=== PATIENT | male | born 1955 | race African-American/Black ===

== ENCOUNTER → 2017-08-18 15:06 | Outpatient (CLI) | payer MEDICARE, SELFPAY ==
[2017-08-18 19:50] LABS: Amphetamine/Metha Screen,Urine Negative ng/mL (<1000); Barbiturates Screen,Urine Negative ng/mL (<200); Benzodiazepines Screen,Urine Negative ng/mL (200); Cannabinoid Screen,Urine Negative ng/mL (<50); Cocaine Screen,Urine Negative ng/g (<300); Methadone Screen,Urine Negative ng/mL (<300); Opiate Screen,Urine Negative ng/mL (<300); Phencyclidine Screen,Urine Negative ng/mL (<25)
[2017-08-30 23:07] LABS: Oxycodone (GC/MS) 890 ng/mL (Cutoff=100)
[2017-08-31 02:15] LABS: Opiates Negative (Cutoff=100); Oxymorphone (GC/MS) 297 ng/mL (Cutoff=100)
== END ==
PROVIDERS: PCP Family Medicine; Visit Provider Anesthesiology
DX: Z79.899 Other long term (current) drug therapy (principal)
CPT/HCPCS: 80305; 80361; 80365; G0480

== ENCOUNTER → 2017-09-15 13:48 | Outpatient (POV) | payer MEDICARE, OTHER, SELFPAY ==
--- NOTE | 2017-09-15 14:11 | HMH.PAINSOAP ---
[facility] Pain Management SOAP Note Subjective:: This patient is a pleasant 62-year-old -[place] male who we are treating in our clinic for back pain secondary to degenerative disc disease of the lumbar spine, lumbar radiculopathy and postlaminectomy syndrome. Patient is currently being medically managed with Percocet 7.5 mg 1 tab p.o. 3 times daily. Patient states that this decreases his pain 75-80%. Patient is much more functional with the pain medication. Patient's drug screens have been appropriate in the past his JACKLYN #[id number] reviewed and appropriate. Patient states that his pain is dull and achy in nature. Movement and weather can increase the pain whereas rest can decrease it. Patient denies any side effects to the medication. ROS General: no recent weight change, no fever, no sleep disturbances Respiratory: no cough, no shortness of air, no recurring pulmonary infections Cardiovascular/Peripheral Vascular: No chest pain, No palpitations, no edema, no shortness of breath. Gastrointestinal: no incontinence, normal bowel movements reported Genitourinary: Bladder stinger placed in 2013 Musculoskeletal: Low back pain Psychiatric: normal mood/ affect Neurological: [denies weakness in extremities], [denies balance issues] Objective:: Physical Exam General: Alert and oriented x3, no acute distress, pleasant and cooperative, [on room air] Lungs: Resps E/U, Symmetrical chest expansion, Eyes: PERRL Musculoskeletal: Flexion and extension of lumbar spine somewhat guarded secondary to pain, deep tendon reflexes normal, strength in upper and lower extremities [5/5], normal gait noted Neurological: speech clear, 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 3 times daily, given the efficacy of this current regimen. Dr. García reviewed the chart and agrees with this. We will give him 2 months worth of prescriptions. He can call for the third inter-month. We will see him back in 3 months. Patient's Jacklyn and UDS have been reviewed. Patient has been prescribed a controlled substance after being counseled on the medication, medication safety, and possible side effects. JACKLYN report has been obtained and reviewed prior to prescription and found to be appropriate. Opioid contract was reviewed and signed by the patient, and that they have agreed to all of the terms set forth by our compliance program. This note was dictated using voice recognition software and may contain errors or omissions
--- NOTE | 2017-09-15 14:14 | P.CONS_ITS ---
[facility] Pain Management SOAP Note Subjective:: This patient is a pleasant 62-year-old -Australian male who we are treating in our clinic for back pain secondary to degenerative disc disease of the lumbar spine, lumbar radiculopathy and postlaminectomy syndrome. Patient is currently being medically managed with Percocet 7.5 mg 1 tab p.o. 3 times daily. Patient states that this decreases his pain 75-80%. Patient is much more functional with the pain medication. Patient's drug screens have been appropriate in the past his JACKLYN #[id number] reviewed and appropriate. Patient states that his pain is dull and achy in nature. Movement and weather can increase the pain whereas rest can decrease it. Patient denies any side effects to the medication. ROS General: no recent weight change, no fever, no sleep disturbances Respiratory: no cough, no shortness of air, no recurring pulmonary infections Cardiovascular/Peripheral Vascular: No chest pain, No palpitations, no edema, no shortness of breath. Gastrointestinal: no incontinence, normal bowel movements reported Genitourinary: Bladder stinger placed in 2013 Musculoskeletal: Low back pain Psychiatric: normal mood/ affect Neurological: [denies weakness in extremities], [denies balance issues] Objective:: Physical Exam General: Alert and oriented x3, no acute distress, pleasant and cooperative, [ on room air] Lungs: Resps E/U, Symmetrical chest expansion, Eyes: PERRL Musculoskeletal: Flexion and extension of lumbar spine somewhat guarded secondary to pain, deep tendon reflexes normal, strength in upper and lower extremities [5/5], normal gait noted Neurological: speech clear, income tax consultant equal, no gross sensory deficits Assessment:: Degenerative disc disease of the lumbar spine, lumbar radiculopathy, postlaminectomy syndrome Plan:: We will refill this patient's medications Percocet 7.5 mg 1 p.o. 3 times daily, given the efficacy of this current regimen. Dr. García reviewed the chart and agrees with this. We will give him 2 months worth of prescriptions. He can call for the third inter-month. We will see him back in 3 months. Patient's Jacklyn and UDS have been reviewed. Patient has been prescribed a controlled substance after being counseled on the medication, medication safety, and possible side effects. JACKLYN report has been obtained and reviewed prior to prescription and found to be appropriate. Opioid contract was reviewed and signed by the patient, and that they have agreed to all of the terms set forth by our compliance program. This note was dictated using voice recognition software and may contain errors or omissions
[2017-09-15 14:15] VITALS: BP 150/82; PULSE 94; RESP 20; TEMP 36.6; O2SAT 100; BMI 28.5
== END ==
PROVIDERS: Family Provider Family Medicine; PCP Family Medicine; Visit Provider Clinical Nurse Specialist Family Health
DX: M54.16 Radiculopathy, lumbar region (principal)
CPT/HCPCS: 99212

== ENCOUNTER → 2017-11-23 08:55 | Outpatient (POV) | payer MEDICARE, OTHER, SELFPAY ==
[2017-11-23 09:10] VITALS: BP 122/80; PULSE 68; RESP 18; TEMP 36.6; O2SAT 98; BMI 28.5
--- NOTE | 2017-11-23 09:40 | HMH.PAINSOAP ---
[facility] Pain Management SOAP Note Subjective:: Patient is a very pleasant 62-year-old -[place]ian male who we are treating for pain secondary to degenerative disc disease of the lumbar spine, lumbar radiculopathy and postlaminectomy syndrome. Patient is currently being medically managed with Percocet 7.5 mg 1 tab p.o. 3 times daily. Patient states this decreases his pain 70-80%. Patient is much more functional with pain medication. Patient is due a drug screen today we will send him after this and continue to monitor it for compliance. Patient's JACKLYN #[id number] reviewed and appropriate. Patient states that his pain is dull and achy in nature. Patient states that with the increase in brain it has slightly worsened. ROS General: no recent weight change, no fever, no sleep disturbances Respiratory: no cough, no shortness of air, no recurring pulmonary infections Cardiovascular/Peripheral Vascular: No chest pain, No palpitations, no edema, no shortness of breath. Gastrointestinal: no incontinence, normal bowel movements reported Genitourinary: Bladder stimulator Musculoskeletal: Low back pain Psychiatric: normal mood/ affect, [denies depression], [denies anxiety] Neurological: [denies weakness in extremities], [denies balance issues] Objective:: Physical Exam General: Alert and oriented x3, no acute distress, pleasant and cooperative, [on room air] Lungs: Resps E/U, Symmetrical chest expansion, Eyes: PERRL Musculoskeletal: Flexion and extension of lumbar spine somewhat guarded secondary to pain, deep tendon reflexes normal, strength in upper and lower extremities [5/5], slightly antalgic gait noted Neurological: speech clear, medication aid equal, no gross sensory deficits Assessment:: Degenerative disc disease lumbar spine, lumbar radiculopathy, postlaminectomy syndrome Plan:: We will refill the patient's medication is a 7.5 mg 1 p.o. 3 times daily. 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 We will see the patient back in [address] García has reviewed this chart and agrees with this plan of care. Patient's Jacklyn has been reviewed and his UDS will be reviewed upon receiving it after this visit. Patient has been prescribed a controlled substance after being counseled on the medication, medication safety, and possible side effects. JACKLYN report has been obtained and reviewed prior to prescription and found to be appropriate. Opioid contract was reviewed and signed by the patient, and that they have agreed to all of the terms set forth by our compliance program. This note was dictated using voice recognition software and may contain errors or omissions
--- NOTE | 2017-11-23 09:43 | P.CONS_ITS ---
[facility] Pain Management SOAP Note Subjective:: Patient is a very pleasant 62-year-old -Scottish male who we are treating for pain secondary to degenerative disc disease of the lumbar spine, lumbar radiculopathy and postlaminectomy syndrome. Patient is currently being medically managed with Percocet 7.5 mg 1 tab p.o. 3 times daily. Patient states this decreases his pain 70-80%. Patient is much more functional with pain medication. Patient is due a drug screen today we will send him after this and continue to monitor it for compliance. Patient's JACKLYN #[id number] reviewed and appropriate. Patient states that his pain is dull and achy in nature. Patient states that with the increase in brain it has slightly worsened. ROS General: no recent weight change, no fever, no sleep disturbances Respiratory: no cough, no shortness of air, no recurring pulmonary infections Cardiovascular/Peripheral Vascular: No chest pain, No palpitations, no edema, no shortness of breath. Gastrointestinal: no incontinence, normal bowel movements reported Genitourinary: Bladder stimulator Musculoskeletal: Low back pain Psychiatric: normal mood/ affect, [denies depression], [denies anxiety] Neurological: [denies weakness in extremities], [denies balance issues] Objective:: Physical Exam General: Alert and oriented x3, no acute distress, pleasant and cooperative, [ on room air] Lungs: Resps E/U, Symmetrical chest expansion, Eyes: PERRL Musculoskeletal: Flexion and extension of lumbar spine somewhat guarded secondary to pain, deep tendon reflexes normal, strength in upper and lower extremities [5/5], slightly antalgic gait noted Neurological: speech clear, field service consultant equal, no gross sensory deficits Assessment:: Degenerative disc disease lumbar spine, lumbar radiculopathy, postlaminectomy syndrome Plan:: We will refill the patient's medication is a 7.5 mg 1 p.o. 3 times daily. 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 We will see the patient back in [address] García has reviewed this chart and agrees with this plan of care. Patient's Jacklyn has been reviewed and his UDS will be reviewed upon receiving it after this visit. Patient has been prescribed a controlled substance after being counseled on the medication, medication safety, and possible side effects. JACKLYN report has been obtained and reviewed prior to prescription and found to be appropriate. Opioid contract was reviewed and signed by the patient, and that they have agreed to all of the terms set forth by our compliance program. This note was dictated using voice recognition software and may contain errors or omissions
[2017-11-23 10:28] LABS: Amphetamine/Metha Screen,Urine Negative ng/mL (<1000); Barbiturates Screen,Urine Negative ng/mL (<200); Benzodiazepines Screen,Urine Negative ng/mL (200); Cannabinoid Screen,Urine Negative ng/mL (<50); Cocaine Screen,Urine Negative ng/g (<300); Methadone Screen,Urine Negative ng/mL (<300); Opiate Screen,Urine Negative ng/mL (<300); Phencyclidine Screen,Urine Negative ng/mL (<25)
[2017-11-28 17:17] LABS: Oxycodone (GC/MS) 1180 ng/mL (Cutoff=100)
[2017-11-29 06:25] LABS: Opiates Negative (Cutoff=100); Oxymorphone (GC/MS) 445 ng/mL (Cutoff=100)
== END ==
PROVIDERS: Family Provider Family Medicine; PCP Family Medicine; Visit Provider Clinical Nurse Specialist Family Health
DX: M54.16 Radiculopathy, lumbar region; Z79.899 Other long term (current) drug therapy
CPT/HCPCS: 80305; 80361; 80365; 99212; G0480

== ENCOUNTER → 2018-02-15 13:53 | Outpatient (POV) | payer MEDICARE, OTHER, SELFPAY ==
[2018-02-15 14:07] VITALS: BP 136/81; PULSE 84; RESP 18; O2SAT 97; BMI 30.4
--- NOTE | 2018-02-15 14:25 | HMH.PAINSOAP ---
[facility] Pain Management SOAP Note Subjective:: Patient is a very pleasant 63-year-old -Lebanese male who we are treating for pain secondary to degenerative disc disease of the lumbar spine with lumbar radiculopathy and postlaminectomy syndrome. Patient is being medically managed with Percocet 7.5 mg 1 tab p.o. 3 times daily. Patient states that this helps his pain up to 70%. Patient's much more functional with his pain medication. Patient states his pain is a little higher today due to the weather. He rates his pain a 5 out of 10 today. Patient's JACKLYN #[id number] reviewed and appropriate. ROS General: no recent weight change, no fever, no sleep disturbances Respiratory: no cough, no shortness of air, no recurring pulmonary infections Cardiovascular/Peripheral Vascular: No chest pain, No palpitations, no edema, no shortness of breath. Gastrointestinal: no incontinence, normal bowel movements reported Genitourinary: no incontinence Musculoskeletal: Back pain, leg pain Psychiatric: normal mood/ affect Neurological: [denies weakness in extremities], [denies balance issues] Objective:: Physical Exam General: Alert and oriented x3, no acute distress, pleasant and cooperative, [on room air] Lungs: Resps E/U, Symmetrical chest expansion, Eyes: PERRL Musculoskeletal: Flexion and extension of lumbar spine somewhat guarded secondary to pain, deep tendon reflexes normal, strength in upper and lower extremities [5/5], slightly antalgic gait noted Neurological: speech clear, multi skilled operator equal, no gross sensory deficits Assessment:: Degenerative disc disease lumbar spine with lumbar radiculopathy and postlaminectomy syndrome of the lumbar spine Plan:: We will refill the patient's Percocet 7.5 mg 1 tab p.o. 3 times daily we will give him 2 months worth of medication. Patient's Jacklyn and urine drug screen have been reviewed. Patient's urine drug screen has been appropriate in the past. Dr. García is reviewed this chart and agrees with this plan of care. We will give him 2 prescriptions and follow-up with him in 3 months. 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 Patient's been instructed to call the office if he has any issues prior to his next appointment. Patient has been prescribed a controlled substance after being counseled on the medication, medication safety, and possible side effects. JACKLYN report has been obtained and reviewed prior to prescription and found to be appropriate. Opioid contract was reviewed and signed by the patient, and that they have agreed to all of the terms set forth by our compliance program. This note was dictated using voice recognition software and may contain errors or omissions
--- NOTE | 2018-02-15 14:29 | P.CONS_ITS ---
[facility] Pain Management SOAP Note Subjective:: Patient is a very pleasant 63-year-old -Stateless male who we are treating for pain secondary to degenerative disc disease of the lumbar spine with lumbar radiculopathy and postlaminectomy syndrome. Patient is being medically managed with Percocet 7.5 mg 1 tab p.o. 3 times daily. Patient states that this helps his pain up to 70%. Patient's much more functional with his pain medication. Patient states his pain is a little higher today due to the weather. He rates his pain a 5 out of 10 today. Patient's JACKLYN # [id number] reviewed and appropriate. ROS General: no recent weight change, no fever, no sleep disturbances Respiratory: no cough, no shortness of air, no recurring pulmonary infections Cardiovascular/Peripheral Vascular: No chest pain, No palpitations, no edema, no shortness of breath. Gastrointestinal: no incontinence, normal bowel movements reported Genitourinary: no incontinence Musculoskeletal: Back pain, leg pain Psychiatric: normal mood/ affect Neurological: [denies weakness in extremities], [denies balance issues] Objective:: Physical Exam General: Alert and oriented x3, no acute distress, pleasant and cooperative, [ on room air] Lungs: Resps E/U, Symmetrical chest expansion, Eyes: PERRL Musculoskeletal: Flexion and extension of lumbar spine somewhat guarded secondary to pain, deep tendon reflexes normal, strength in upper and lower extremities [5/5], slightly antalgic gait noted Neurological: speech clear, burglary investigator equal, no gross sensory deficits Assessment:: Degenerative disc disease lumbar spine with lumbar radiculopathy and postlaminectomy syndrome of the lumbar spine Plan:: We will refill the patient's Percocet 7.5 mg 1 tab p.o. 3 times daily we will give him 2 months worth of medication. Patient's Jacklyn and urine drug screen have been reviewed. Patient's urine drug screen has been appropriate in the past. Dr. García is reviewed this chart and agrees with this plan of care. We will give him 2 prescriptions and follow-up with him in 3 months. 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 Patient's been instructed to call the office if he has any issues prior to his next appointment. Patient has been prescribed a controlled substance after being counseled on the medication, medication safety, and possible side effects. JACKLYN report has been obtained and reviewed prior to prescription and found to be appropriate. Opioid contract was reviewed and signed by the patient, and that they have agreed to all of the terms set forth by our compliance program. This note was dictated using voice recognition software and may contain errors or omissions
== END ==
PROVIDERS: Visit Provider Clinical Nurse Specialist Family Health
DX: M51.16 Intervertebral disc disorders with radiculopathy, lumbar region (principal); M96.1 Postlaminectomy syndrome, not elsewhere classified
CPT/HCPCS: 99212

== ENCOUNTER → 2018-03-01 12:39 | Outpatient (POV) | payer MEDICARE, OTHER, SELFPAY | PROVIDERS: Visit Provider Nurse Practitioner Acute Care | DX: Z00.00 Encounter for general adult medical examination without abnormal findings (principal) ==

== ENCOUNTER → 2018-04-12 10:11 | Outpatient (POV) | payer MEDICARE, OTHER, SELFPAY ==
[2018-04-12 10:23] VITALS: BP 142/83; PULSE 82; RESP 18; O2SAT 98; BMI 29.5
--- NOTE | 2018-04-12 10:51 | HMH.PAINSOAP ---
[facility] Pain Management SOAP Note Subjective:: Patient is a very pleasant 63-year-old -Chinese male who we are treating for pain secondary to degenerative disc disease lumbar spine with lumbar radiculopathy and postlaminectomy syndrome. Patient is currently being medically managed with Percocet 7.5 mg 1 p.o. 3 times daily. Patient denies any side effects from this medication and states that it helps up to 70%. Patient states he is much more plugged functional. Patient rates his pain 8 out of 10 however his baseline is 5 out of 10. Patient states is higher today due to weather. Patient's JACKLYN #[id number] reviewed and appropriate. Patient's urine drug screen has been appropriate in the past. ROS General: no recent weight change, no fever, no sleep disturbances Respiratory: no cough, no shortness of air, no recurring pulmonary infections Cardiovascular/Peripheral Vascular: No chest pain, No palpitations, no edema, no shortness of breath. Gastrointestinal: no incontinence, normal bowel movements reported Genitourinary: no incontinence Musculoskeletal: Back pain, right hip pain Psychiatric: normal mood/ affect Neurological: [denies weakness in extremities], [denies balance issues] Objective:: Physical Exam General: Alert and oriented x3, no acute distress, pleasant and cooperative, [on room air] Lungs: Resps E/U, Symmetrical chest expansion, Eyes: PERRL Musculoskeletal: Flexion and extension of lumbar spine somewhat guarded secondary to pain, deep tendon reflexes normal, strength in upper and lower extremities [5/5], slightly antalgic gait noted Neurological: speech clear, glass science engineer equal, no gross sensory deficits Assessment:: Degenerative disc disease lumbar spine with lumbar radiculopathy and postlaminectomy syndrome of the lumbar spine Plan:: We will refill the patient's Percocet 7.5 mg 1 tab p.o. 3 times daily and give him 2 months worth of prescriptions. Patient's Jacklyn and urine drug screen have been reviewed. Patient chart has been reviewed by Dr. García and agrees with this plan of care. We will follow-up with him in 3 months and he can cone picker his third prescription in the interim. Patient has been prescribed a controlled substance after being counseled on the medication, medication safety, and possible side effects. JACKLYN report has been obtained and reviewed prior to prescription and found to be appropriate. Opioid contract was reviewed and signed by the patient, and that they have agreed to all of the terms set forth by our compliance program. This note was dictated using voice recognition software and may contain errors or omissions
--- NOTE | 2018-04-12 10:54 | P.CONS_ITS ---
[facility] Pain Management SOAP Note Subjective:: Patient is a very pleasant 63-year-old -[place] male who we are treating for pain secondary to degenerative disc disease lumbar spine with lumbar radiculopathy and postlaminectomy syndrome. Patient is currently being medically managed with Percocet 7.5 mg 1 p.o. 3 times daily. Patient denies any side effects from this medication and states that it helps up to 70%. Patient states he is much more plugged functional. Patient rates his pain 8 out of 10 however his baseline is 5 out of 10. Patient states is higher today due to weather. Patient's JACKLYN #[id number] reviewed and appropriate. Patient's urine drug screen has been appropriate in the past. ROS General: no recent weight change, no fever, no sleep disturbances Respiratory: no cough, no shortness of air, no recurring pulmonary infections Cardiovascular/Peripheral Vascular: No chest pain, No palpitations, no edema, no shortness of breath. Gastrointestinal: no incontinence, normal bowel movements reported Genitourinary: no incontinence Musculoskeletal: Back pain, right hip pain Psychiatric: normal mood/ affect Neurological: [denies weakness in extremities], [denies balance issues] Objective:: Physical Exam General: Alert and oriented x3, no acute distress, pleasant and cooperative, [on room air] Lungs: Resps E/U, Symmetrical chest expansion, Eyes: PERRL Musculoskeletal: Flexion and extension of lumbar spine somewhat guarded secondary to pain, deep tendon reflexes normal, strength in upper and lower extremities [5/5], slightly antalgic gait noted Neurological: speech clear, marine electrician apprentice equal, no gross sensory deficits Assessment:: Degenerative disc disease lumbar spine with lumbar radiculopathy and postlaminectomy syndrome of the lumbar spine Plan:: We will refill the patient's Percocet 7.5 mg 1 tab p.o. 3 times daily and give him 2 months worth of prescriptions. Patient's Jacklyn and urine drug screen have been reviewed. Patient chart has been reviewed by Dr. García and agrees with this plan of care. 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 Patient has been prescribed a controlled substance after being counseled on the medication, medication safety, and possible side effects. JACKLYN report has been obtained and reviewed prior to prescription and found to be appropriate. Opioid contract was reviewed and signed by the patient, and that they have agreed to all of the terms set forth by our compliance program. This note was dictated using voice recognition software and may contain errors or omissions
[2018-04-12 13:45] LABS: Amphetamine/Metha Screen,Urine Negative ng/mL (<1000); Barbiturates Screen,Urine Negative ng/mL (<200); Benzodiazepines Screen,Urine Negative ng/mL (<200); Cannabinoid Screen,Urine Negative ng/mL (<50); Cocaine Screen,Urine Negative ng/mL (<300); Methadone Screen,Urine Negative ng/mL (<300); Opiate Screen,Urine Negative ng/mL (<300); Phencyclidine Screen,Urine Negative ng/mL (<25)
[2018-04-16 09:19] LABS: Oxycodone (GC/MS) 771 ng/mL (Cutoff=100)
[2018-04-16 12:33] LABS: Opiates Negative (Cutoff=100); Oxymorphone (GC/MS) 288 ng/mL (Cutoff=100)
== END ==
PROVIDERS: Family Provider Family Medicine; Visit Provider Clinical Nurse Specialist Family Health
DX: M51.36 Other intervertebral disc degeneration, lumbar region (principal); M96.1 Postlaminectomy syndrome, not elsewhere classified; Z79.899 Other long term (current) drug therapy
CPT/HCPCS: 80305; 80361; 80365; 99213; G0480

== ENCOUNTER → 2018-07-19 09:30 | Outpatient (POV) | payer MEDICARE, OTHER, SELFPAY ==
[2018-07-19 09:55] VITALS: BP 148/90; PULSE 80; RESP 18; O2SAT 98; BMI 29.5
--- NOTE | 2018-07-19 10:11 | P.CONS_ITS ---
[facility] Pain Management SOAP Note Subjective:: Patient is a pleasant 63-year-old -Italian male who presents today for medication refills. He is currently being managed with Percocet 7.5 mg 1 p.o. 3 times daily. He denies any side effects to his medication and states it helps up to 70%. Patient rates his his pain a 7 out of 10 today. Patient states is up a little bit due to weather. Patient's JACKLYN #[id number] reviewed and appropriate. Patient urine drug screen has been appropriate in the past. ROS General: no recent weight change, no fever, no sleep disturbances Respiratory: no cough, no shortness of air, no recurring pulmonary infections Cardiovascular/Peripheral Vascular: No chest pain, No palpitations, no edema, no shortness of breath. Gastrointestinal: no incontinence, normal bowel movements reported Genitourinary: no incontinence Musculoskeletal: Back pain Psychiatric: normal mood/ affect, [denies depression], [denies anxiety] Neurological: [denies weakness in extremities], [denies balance issues] Objective:: Physical Exam General: Alert and oriented x3, no acute distress, pleasant and cooperative, [on room air] Lungs: Resps E/U, Symmetrical chest expansion, Eyes: PERRL Musculoskeletal: Flexion and extension of lumbar spine somewhat guarded secondary to pain, deep tendon reflexes normal, strength in upper and lower extremities [5/5], [abnormal gait noted] Neurological: speech clear, 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 3 times daily and give him 2 months worth of prescriptions. 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 Patient's been instructed to call the office if he has any issues prior to his next appointment. Dr. García is reviewed this chart and agrees with this plan of care. Patient has been prescribed a controlled substance after being counseled on the medication, medication safety, and possible side effects. JACKLYN report has been obtained and reviewed prior to prescription and found to be appropriate. Opioid contract was reviewed and signed by the patient, and that they have agreed to all of the terms set forth by our compliance program. This note was dictated using voice recognition software and may contain errors or omissions
== END ==
PROVIDERS: PCP Family Medicine; Visit Provider Clinical Nurse Specialist Family Health
DX: M51.16 Intervertebral disc disorders with radiculopathy, lumbar region (principal); M96.1 Postlaminectomy syndrome, not elsewhere classified
CPT/HCPCS: 99213

== ENCOUNTER → 2018-09-15 09:42 | Outpatient (CLI) | payer MEDICARE, OTHER, SELFPAY ==
[2018-09-15 10:30] LABS: Amphetamine/Metha Screen,Urine Negative ng/mL (<1000); Barbiturates Screen,Urine Negative ng/mL (<200); Benzodiazepines Screen,Urine Negative ng/mL (<200); Cannabinoid Screen,Urine Negative ng/mL (<50); Cocaine Screen,Urine Negative ng/mL (<300); Methadone Screen,Urine Negative ng/mL (<300); Opiate Screen,Urine Negative ng/mL (<300); Phencyclidine Screen,Urine Negative ng/mL (<25)
[2018-09-21 09:25] LABS: Opiates Negative (Cutoff=100)
== END ==
PROVIDERS: Visit Provider Clinical Nurse Specialist Family Health
DX: Z79.899 Other long term (current) drug therapy (principal)
CPT/HCPCS: 80305; 80361; 80365; G0480

== ENCOUNTER → 2018-10-11 10:07 | Outpatient (POV) | payer MEDICARE, OTHER, SELFPAY ==
[2018-10-11 10:36] VITALS: BP 145/88; PULSE 80; RESP 18; O2SAT 98; BMI 28.3
--- NOTE | 2018-10-11 11:03 | XR_ITS ---
XR hip RT 2-3V w/pelvis HISTORY: Pain ITS.REASON: BACK PAIN ORDERING PHYSICIAN: Renea Condon PATIENT AGE: 63 years COMPARISON: None FINDINGS: Neurostimulator device noted over the right sacral region. Surgical clips are present over the lower pelvis. Penile implant noted. There are moderate osteoarthritic changes of the right hip. No fracture or dislocation is evident. There is an os acetabulum noted laterally. There are moderate osteoarthritic changes of the left hip as well with some chondral lucency along the acetabulum laterally consistent with a subchondral cyst. IMPRESSION: Moderate osteoarthritic change of both hips
--- NOTE | 2018-10-11 11:03 | XR_ITS ---
EXAM: XR lumbar spine min 4V HISTORY: ITS.REASON: BACK PAIN ORDERING PHYSICIAN: Renea Condon PATIENT AGE: 63 years COMPARISON: 11/05/2015 FINDINGS: There is lumbar is a shunt of S1. There is normal alignment with no fracture or dislocation. Degenerative disc disease is present from L2 to S1 and S1-S2. There is mild facet arthritic changes at the lumbosacral junction and there is a small anterior superior osteophyte at L1 and L2. A neurostimulator device is present overlying the right aspect of the sacrum. There is mild osteosclerosis of the left SI joint and there is mild lumbar curvature convex right IMPRESSION: Degenerative changes as described above with no significant change from the previous exam.
--- NOTE | 2018-10-11 13:39 | HMH.PAINSOAP ---
[facility] Pain Management SOAP Note Subjective:: Patient is a pleasant 63-year-old -Bhut[place] male who presents today for medication refills. Patient was negative on his last urine drug screen and patient has recently failed a pill count by 20+ pills. Patient states he was taking extra. I discussed with him we would not be able to continue with medication management. He understands. Patient rates his pain a 7 out of 10 today. Patient states most of his pain is in his right hip and lower back. Patient has not had any diagnostic studies in regards to this. Patient will go for x-rays today. ROS General: no recent weight change, no fever, no sleep disturbances Respiratory: no cough, no shortness of air, no recurring pulmonary infections Cardiovascular/Peripheral Vascular: No chest pain, No palpitations, no edema, no shortness of breath. Gastrointestinal: no incontinence, normal bowel movements reported Genitourinary: no incontinence Musculoskeletal: Back pain, right hip pain Psychiatric: normal mood/ affect Neurological: [denies weakness in extremities], [denies balance issues] Objective:: Physical Exam General: Alert and oriented x3, no acute distress, pleasant and cooperative, [on room air] Lungs: Resps E/U, Symmetrical chest expansion, Eyes: PERRL Musculoskeletal: Flexion and extension of lumbar spine somewhat guarded secondary to pain, deep tendon reflexes normal, strength in upper and lower extremities [5/5], [abnormal gait noted] Neurological: speech clear, 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 3 times daily. After this we will no longer prescribe any narcotic medications. Patient states he would still like to go ahead and get x-rays. He will either follow-up with us or Dr. Dooley. Patient is still candidate for injective therapy if he would like to move forward with this in the future. Patient has been prescribed a controlled substance after being counseled on the medication, medication safety, and possible side effects. JACKLYN report has been obtained and reviewed prior to prescription and found to be appropriate. Opioid contract was reviewed and signed by the patient, and that they have agreed to all of the terms set forth by our compliance program. Dr. García has reviewed this note and agrees with this plan of care. This note was dictated using voice recognition software and may contain errors or omissions
--- NOTE | 2018-10-11 13:42 | P.CONS_ITS ---
[facility] Pain Management SOAP Note Subjective:: Patient is a pleasant 63-year-old -[place] male who presents today for medication refills. Patient was negative on his last urine drug screen and patient has recently failed a pill count by 20+ pills. Patient states he was taking extra. I discussed with him we would not be able to continue with medication management. He understands. Patient rates his pain a 7 out of 10 today. Patient states most of his pain is in his right hip and lower back. Patient has not had any diagnostic studies in regards to this. Patient will go for x-rays today. ROS General: no recent weight change, no fever, no sleep disturbances Respiratory: no cough, no shortness of air, no recurring pulmonary infections Cardiovascular/Peripheral Vascular: No chest pain, No palpitations, no edema, no shortness of breath. Gastrointestinal: no incontinence, normal bowel movements reported Genitourinary: no incontinence Musculoskeletal: Back pain, right hip pain Psychiatric: normal mood/ affect Neurological: [denies weakness in extremities], [denies balance issues] Objective:: Physical Exam General: Alert and oriented x3, no acute distress, pleasant and cooperative, [on room air] Lungs: Resps E/U, Symmetrical chest expansion, Eyes: PERRL Musculoskeletal: Flexion and extension of lumbar spine somewhat guarded secondary to pain, deep tendon reflexes normal, strength in upper and lower extremities [5/5], [abnormal gait noted] Neurological: speech clear, 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 3 times daily. After this we will no longer prescribe any narcotic medications. Patient states he would still like to go ahead and get x-rays. He will either follow-up with us or Dr. Dooley. Patient is still candidate for injective therapy if he would like to move forward with this in the future. Patient has been prescribed a controlled substance after being counseled on the medication, medication safety, and possible side effects. JACKLYN report has been obtained and reviewed prior to prescription and found to be appropriate. Opioid contract was reviewed and signed by the patient, and that they have agreed to all of the terms set forth by our compliance program. Dr. García has reviewed this note and agrees with this plan of care. This note was dictated using voice recognition software and may contain errors or omissions
== END ==
PROVIDERS: PCP Family Medicine; Visit Provider Clinical Nurse Specialist Family Health
DX: M51.16 Intervertebral disc disorders with radiculopathy, lumbar region (principal); M96.1 Postlaminectomy syndrome, not elsewhere classified; M25.551 Pain in right hip
CPT/HCPCS: 72110; 73502; 99213

== ENCOUNTER → 2018-11-10 08:36 | Outpatient (CLI) | payer MEDICARE, OTHER, SELFPAY ==
--- NOTE | 2018-11-11 17:53 | HMH.PROC ---
[facility] Procedure Note Procedure Note:: Date of Procedure: 11/10/2018 Pre-procedure diagnosis: R hip DJD Post-procedure diagnosis: R hip DJD Procedure: intraarticular corticosteroid injection R hip Performed by: Estella Paul MD Cosmetic Sales Consultant/s: none Anesthesia: local; 5cc 1% lidocaine w/o epinephrine Estimated Blood Loss: none History of Present Illness: 63-year-old gentleman with right hip pain, localized to the posterolateral hip and upper buttock, no groin pain; radiographic evidence of both degenerative joint disease of the right hip as well as diffuse degenerative changes throughout the lumbar spine. Based on his symptoms, I feel his pain is most likely coming from his back, but I cannot definitively exclude contribution from the arthritic hip. I discussed options with the patient and we have agreed to perform an intra-articular corticosteroid injection under radiographic guidance; if this significantly improves his pain, we will have confirmed that it is most likely coming from hip. If he does not receive pain relief from the injection, I feel it may more likely be coming from his back. Risks of the procedure were discussed with the patient who vocalized understanding and provided informed consent. Procedure Note: The patient presented to the radiology department and changed into a gown, exposing the R hip. Consent was reviewed and signed by both myself and the patient, all questions were answered. The patient was placed supine on the fluoroscopy table and the R hip exposed. The anterior groin/hip and proximal thigh were prepped with chlorhexidine. Timeout was performed. Next, the fluoro machine was brought in over the patient?s R hip and a picture taken to confirm adequate visualization of the joint. I donned a pair of sterile surgical gloves; the remainder of the procedure was performed in a sterile fashion. A 20G spinal needle was held over the hip to approximate my desired entry point on the skin. Once this was established, a 25G needle was used to infiltrate injection site and estimated needle track with 10cc 1% lidocaine w/o epinephrine. Once the injection site was anesthetized, the spinal needle was advanced through the same puncture site and deeper towards the hip joint. Using fluoro, it was confirmed that the needle was advanced until it was at the level of the femoral neck. The stylus was removed from the spinal needle and 2cc of iodinated contrast solution was injected through the spinal needle. Fluoro was taken again, and the dye confirmed intra-capsular placement of the spinal needle, indicating a successful intraarticular injection. The syringe with contrast was removed, keeping the spinal needle in place, and 40mg Kenalog with 2cc 1% lidocaine w/o epinephrine was injected through the needle into the hip joint. A final fluoro picture was taken, confirming successful intraarticular injection. The spinal needle was removed from the hip and a band-aid was placed over the injection site. Specimens: none Condition/Disposition: good / home Complications: none
== END ==
PROVIDERS: PCP Family Medicine; Visit Provider Orthopaedic Surgery
DX: M16.9 Osteoarthritis of hip, unspecified (principal)
CPT/HCPCS: 73525

== ENCOUNTER 2019-01-18 21:08 | Inpatient (IN) ==
[2019-01-18 21:35] LABS: Basophils % 0.4 % (0.1-2.0); Eosinophils # 0.3 K/mm3 (0.0-0.4); Eosinophils % 3.2 % (0.1-12.0); Hematocrit 41.1 % (42.0-52.0); Hemoglobin 13.5 g/dL (14.1-18.0); Lymphocytes # 2.9 K/mm3 (0.7-4.5); Lymphocytes % 26.7 % (10-50); Mean Corpuscular HGB Conc 32.9 g/dL (31.8-35.4); Mean Corpuscular Volume 85.2 fl (80-94); Mean Platelet Volume 7.4 fl (7.4-10.4); Monocytes # 0.8 K/mm3 (0.1-1.0); Neutrophils # 6.8 K/mm3 (1.8-7.8); Neutrophils % 62.6 % (37.0-80.0); Platelet Count 259 K/mm3 (142-424); Red Blood Count 4.83 M/mm3 (4.60-6.20); Red Cell Distribution Width 13.9 % (11.5-17.5); White Blood Count 10.8 K/mm3 (4.8-10.8)
[2019-01-18 21:48] LABS: Albumin Level 3.2 gm/dL (3.4-5.0); Bilirubin,Direct 0.3 mg/dL (0.0-0.2); Bilirubin,Indirect 0.9 mg/dL (0.0-0.9); Bilirubin,Total 1.2 mg/dL (0.2-1.0); Total Protein,Serum 7.7 gm/dL (6.4-8.2)
[2019-01-18 21:51] LABS: Anion Gap 11.9 mEq/L (5-15); Blood Urea Nitrogen 25 mg/dL (7-18); Calcium 8.9 mg/dL (8.5-10.1); Carbon Dioxide 29 mmol/L (21.0-32.0); Chloride 99 mmol/L (98-107); Glucose 103 mg/dL (74-106); Sodium 137 mmol/L (136-145)
--- NOTE | 2019-01-18 23:23 | Emergency Department Note ---
ED Disposition Clinical Impression: Renal insufficiency, Hypokalemia Pulmonary embolism Qualifiers: Pulmonary embolism type: other Chronicity: acute Acute cor pulmonale presence: without acute cor pulmonale Qualified Code(s): I26.99 - Other pulmonary embolism without acute cor pulmonale Disposition: Admitted As Inpatient Condition on Discharge: Good - Critical Care Critical Care Time: No Attestation: On 01/18/19, the high probability of a clinically significant, sudden or life threatening deterioration of the following system(s) required my full and direct attention, intervention and personal management. The time I documented below is in addition to time spent performing reported procedures but includes the following listed in this critical care notation. Medical Decision Making - Medical Records Medical records reviewed: Yes: I reviewed the patient's medical records. - Isidro Inquiry Pt receiving controlled substance: No Vital Signs: 01/18/19 21:12 01/18/19 21:53 01/18/19 22:39 Temperature 98.0 F Temperature Source Oral Pulse Rate 83 Pulse Rate [Right Brachial] 100 H 109 H Respiratory Rate 19 20 Blood Pressure [Right Arm] 131/69 133/70 Blood Pressure Mean [Right Arm] 89 91 Blood Pressure Source [Right Arm] Automatic Cuff Blood Pressure Position [Right Arm] Supine 02 Sat by Pulse Oximetry 98 96 Oxygen Delivery Method Room Air Nasal Cannula Oxygen Flow Rate (LPM) 2 01/18/19 23:05 Temperature Temperature Source Pulse Rate Pulse Rate [Right Brachial] 107 H Respiratory Rate 20 Blood Pressure [Right Arm] 147/89 H Blood Pressure Mean [Right Arm] 108 Blood Pressure Source [Right Arm] Automatic Cuff Blood Pressure Position [Right Arm] Sitting 02 Sat by Pulse Oximetry 96 Oxygen Delivery Method Nasal Cannula Oxygen Flow Rate (LPM) 2 - Lab Data Lab results reviewed: Yes: I reviewed the patient's lab results. Lab Results 01/18/19 21:20: WBC 10.8, RBC 4.83, Hgb 13.5 L, Hct 41.1 L, MCV 85.2, MCH 28.0, MCHC 32.9, RDW 13.9, Plt Count 259, MPV 7.4, Neut % (Auto) 62.6, Lymph % (Auto) 26.7, [place] % (Auto) 7.0, Eos % (Auto) 3.2, Baso % (Auto) 0.4, Neut # (Auto) 6.8, Lymph # (Auto) 2.9, [place] # (Auto) 0.8, Eos # (Auto) 0.3, Baso # (Auto) 0.0 01/18/19 21:20: Sodium 137, Potassium 2.9 L*, Chloride 99, Carbon Dioxide 29, Anion Gap 11.9, BUN 25 H, Creatinine 1.51 H, Estimated Creat Clear 71, Estimated GFR 47 L, Est GFR ( Amer) 57 L, Glucose 103, Calcium 8.9, Troponin I < 0.02 01/18/19 21:20: Total Bilirubin 1.2 H, Direct Bilirubin 0.3 H, Indirect Bilirubin 0.9, AST 27, ALT 37, Alkaline Phosphatase 99, Total Protein 7.7, Albumin 3.2 L 01/18/19 21:20: Lactate 1.6 01/18/19 21:20: APTT 22.4 L Result diagrams: 01/18/19 21:20 01/18/19 21:20 Orders (Tests/Meds): ED MEDICATIONS Generic Name Dose Route Start Last Admin Trade Name Freq PRN Reason Stop Dose Admin Sodium Chloride 1,000 mls @ 999 mls/hr 01/18/19 21:30 01/18/19 21:37 Sod Chlor 0.9% 1000ml Bag IV 01/18/19 22:30 999 mls/hr .Q1H1M CHARITY Administration Heparin Sodium/Dextrose 500 mls @ 28 mls/hr 01/18/19 22:45 01/18/19 22:50 Heparin 25,000 Units In D5w 500ml Premix IV 02/17/19 22:44 28 mls/hr .[id number] CHARIYT Administration 1,400 UNITS/HR Miscellaneous 1 each 01/18/19 22:45 01/18/19 22:50 Heparin Drip Consult Request * 02/17/19 22:44 1 each CONSULT PHARMACY CHARITY Administration Discontinued Medications Generic Name Dose Route Start Last Admin Trade Name Freq PRN Reason Stop Dose Admin Albuterol/Ipratropium 3 ml 01/18/19 21:24 01/18/19 21:37 Duoneb 3ml Neb IH 01/18/19 21:25 3 ml ONCE ONE Administration Heparin Sodium (Porcine) 5,000 unit 01/18/19 22:42 01/18/19 22:50 Heparin Lock Flush 500 Units/5ml IV 01/18/19 22:43 5,000 units ONCE ONE Administration Ioversol 70 ml 01/18/19 22:18 01/18/19 22:20 Rad-Optiray 350 100ml Vial IV 01/18/19 22:19 70 ml ONCE ONE Administration Protocol Methylprednisolone Sodium Succinate 125 mg 01/18/19 21:24 01/18/19 21:37 Solu-Medrol 125mg/2ml Vial IV 01/18/19 21:25 125 mg ONCE ONE Administration Morphine Sulfate 4 mg 01/18/19 22:45 01/18/19 22:50 Morphine 4mg/Ml Syringe IV 01/18/19 22:46 4 mg ONCE ONE Administration Ondansetron HCl 4 mg 01/18/19 22:45 01/18/19 22:51 Zofran 4mg/2ml Vial IV 01/18/19 22:46 4 mg ONCE ONE Administration Sodium Chloride 40 ml 01/18/19 22:18 01/18/19 22:20 Rad-Ns 50ml Vial IV 01/18/19 22:19 40 ml ONCE ONE Administration Sodium Chloride 10 ml 01/18/19 22:18 01/18/19 22:20 Rad-Saline Flush 10ml Syringe IV 01/18/19 22:19 10 ml ONCE ONE Administration ORDERS Category Date Time Status CTA Chest [CT angio chest] Stat Cat Scan 01/18/19 21:58 Taken XR chest AP Stat Exams 01/18/19 21:23 Taken BNP [B-Type Natriuretic Peptide] Stat Lab 01/18/19 21:20 Received PTT [Activated Partial Thrombo Time] Stat Lab 01/19/19 05:00 Ordered Blood Culture Stat Micro 01/18/19 21:20 Received ECG Request by /Tano Stat Y 01/18/19 21:23 Ordered - Radiology Data #1 Image(s): Chest Image Reviewed: Yes I reviewed the patient's radiology image Preliminary Findings: Abnormal (nonspecific rt chest ) - CT Data CT Scan: Chest Time Received: 23:[address] Reviewed: Yes: I have viewed the radiologist's interpretation Preliminary Findings: Abnormal (positive pul emboli ) - ECG Data Tracing #1 Normal Sinus Rhythm: Yes Ischemic changes: non-specific ST-T wave changes - Physician Consults Physician Consulted: oscar Reason -: Admission Resp/SOB HPI - General Chief Complaint: Shortness of Breath/Dyspnea Stated Complaint: SOA Time Seen by Provider: 01/18/19 21:20 Mode of Arrival: Wheelchair Source of Information: Patient, Spouse, Medical Record Limitations: No Limitations Description of Symptoms (Recalled from ER Triage Doc. by RN): reports patient got home thursday, last night started with sweating, and tossing and turning in the bed. Today he has been laying around, and then around 20 minutes ago he became extremely short of breath and was "gasping" for air. Reports he feels slightly short of breath at this time, but says it comes and goes. He reports his chest hurts when he coughs. - History of Present Illness pt with rt sided chest pain which got worse tonight with assoc sob and pleuritic chest pain - no fever or cough MD Complaint: shortness of breath, pain with inspiration Onset (ago): hour(s) Severity: moderate Associated symptoms: denies other symptoms Treatment prior to arrival: none - Related Data Home oxygen amount: none Home Medications Medication Instructions Recorded Confirmed Allopurinol [Allopurinol 300mg 1 tab PO DAILY 05/10/18 01/18/19 tablet] Aspirin [Aspirin 81mg EC Tab] 81 mg PO DAILY 05/10/18 01/18/19 Lisinopril/Hydrochlorothiazide 1 tab PO DAILY 05/10/18 01/18/19 [Lisinopril-Hctz 10-12.5 mg Tab] Colchicine 0.6 mg PO TID PRN 01/18/19 01/18/19 Naproxen Sodium [Naproxen ER 500mg 500 mg PO DAILY 01/18/19 01/18/19 Tab] Previous Rx's Medication Instructions Recorded Albuterol Sulfate [Albuterol HFA 1 - 2 puffs IH Q4-6H PRN #1 inh 09/15/18 Inhaler] Allergies Allergy/AdvReac Type Severity Reaction Status Date / Time No Known Allergies Allergy Verified 01/18/19 21:20 [facility] History - Hepatitis A Screen Drug use history?: No High risk sexual behaviors?: No History of sexually transmitted infection?: No Currently employed?: No Childcare worker?: No Do you have indoor plumbing?: Yes Do you have electricity?: Yes Attestation statement:: This patient has been screened for Hepatitis A risk factors. I have reviewed the patient's past medical history: Yes Medical History: Reports:: Cancer (prostate), Hypertension Denies:: Diabetes Mellitus Type 1, Diabetes Mellitus Type 2, Internal Pa cemaker, Lung Disease, MRSA, Seizures Other Medical History: Reports: Other Laterality Cases: Right: Arthroscopy Knee Other Surgeries: Yes: Other (Back sx, Prostate sx, throat). No: Pacemaker Amputation: No Fractures: No - Social History Smoking Status: Unknown if ever smoked Alcohol Intake: never Alcohol Intake Frequency:: holidays/special occasions only Occupational Status: retired Housing: house Household Members: spouse Family Hx:: Cancer, Hypertension ROS Obtained: Yes All systems reviewed & no additional complaints - Constitutional Constitutional: Denies fever(s) - Eyes Eyes: Denies change in vision - ENT Ears, Nose, Mouth, and Throat: Denies sore throat - Cardiovascular Cardiovascular: Reports as per HPI, Reports chest pain, Reports dyspnea - Respiratory Respiratory: No cough - Gastrointestinal Gastrointestingal: Denies: vomiting - Genitourinary Male Genitourinary: Denies hematuria Female Genitourinary: Reports hematuria - Musculoskeletal Musculoskeletal: Denies joint pain, Denies joint swelling - Integumentary/Breasts Skin/Breast: Denies rash - Neurologic Neurologic: Denies seizure-like activity Physical Exam - General General appearance: alert - Head Head exam: normocephalic - Eye Eye exam: Present: PERRL, EOMI - ENT ENT exam: Present: mucous membranes dry - Neck Neck exam: Present: trachea midline - Respiratory Respiratory exam: Present: other (dec bs on rt ). Absent: respiratory distress - Cardiovascular Cardiovascular exam: Present: regular rate, systolic murmur, +S4 - Abdominal Exam Abdominal exam: Present: soft - Extremities Exam Extremities exam: Absent: calf tenderness - Neurological Exam Neurological exam: Present: alert, oriented X3, CN II-XII intact - Psychiatric Psychiatric exam: Present: normal affect - Skin Skin exam: Absent: rash
[2019-01-19 05:54] LABS: Basophils % 0.1 % (0.1-2.0); Eosinophils % 0.4 % (0.1-12.0); Hematocrit 38.4 % (42.0-52.0); Hemoglobin 12.5 g/dL (14.1-18.0); Lymphocytes # 0.7 K/mm3 (0.7-4.5); Lymphocytes % 9.2 % (10-50); Mean Corpuscular HGB Conc 32.5 g/dL (31.8-35.4); Mean Corpuscular Volume 87.5 fl (80-94); Mean Platelet Volume 7.8 fl (7.4-10.4); Monocytes # 0.2 K/mm3 (0.1-1.0); Neutrophils # 6.7 K/mm3 (1.8-7.8); Neutrophils % 88.2 % (37.0-80.0); Platelet Count 216 K/mm3 (142-424); Red Blood Count 4.39 M/mm3 (4.60-6.20); White Blood Count 7.6 K/mm3 (4.8-10.8)
[2019-01-19 06:13] LABS: Calcium 8.6 mg/dL (8.5-10.1); Phosphorous 2.5 mg/dL (2.4-4.9)
[2019-01-19 06:20] LABS: Anion Gap 10.8 mEq/L (5-15)
--- NOTE | 2019-01-19 07:36 | Pharmacy Consult Notes ---
[facility] Pharmacy VTE Monitoring - Patient Demographics Admission date: 01/18/19 Report Date: 01/19/19 Time: 07:35 Allergies/Adverse Reactions: Patient Allergies No Known Allergies Allergy (Verified 01/19/19 00:00) Height: 1.83 m Weight: 98.883 kg Patient Problems: Current Active Problems (Updated 01/18/19 @ 23:26 by Jagdeep De La Cruz MD) Pulmonary embolism (Acute) Renal insufficiency (Acute) Hypokalemia (Acute) - VTE Risk Labs: VTE Related Lab Results Hgb 12.5 g/dL (14.1-18.0) L 01/19/19 05:40 Hct 38.4 % (42.0-52.0) L 01/19/19 05:40 Plt Count 216 K/mm3 (142-424) 01/19/19 05:40 APTT 40.6 seconds (23.6-34.0) H D 01/19/19 05:40 BUN 21 mg/dL (7-18) H 01/19/19 05:40 Creatinine 1.23 mg/dL (0.70-1.30) 01/19/19 05:40 Estimated Creat Clear 86 mL/min (50-200) 01/19/19 05:40 Was VTE Risk Assessment Performed: Yes VTE Score: 6 VTE Risk Level: High Risk Clinical Trial Participant: No - Prophylaxis VTE Prophylaxis Ordered?: Yes Types of VTE Prophylaxis: Pharmacological Pharmacologic Type: Heparin (AND XARELTO) - VTE Diagnosis Confirmed Treatment or plan recommended: Add other medication (XARELTO) Bridge therapy started inpt?: Yes (XARELTO)
--- NOTE | 2019-01-19 07:54 | History & Physical Report ---
*Admission Date: 01/18/19 *Chief complaint: Right chest pain *History of present illness: 64-year-old male with no prior history of thromboembolic disease presented to the emergency department with a little over 48 hours of episodes of right-sided chest pain worse with deep breathing or cough and progressive shortness of breath. He denies hemoptysis, fevers, chills. Work-up in the emergency department revealed bilateral pulmonary embolism. Patient denies family history of thromboembolic disease. Patient was admitted on heparin drip. This morning patient reports less shortness of breath and less chest pain with deep breathing. He denies cough at this time. Doppler assessment of the lower extremities as well as echocardiogram was just completed. Patient has been discovered to have a left popliteal DVT as well as a right greater saphenous thrombus in addition to his pulmonary embolism [facility] History I have reviewed the patient's past medical history: Yes Medical History: Reports:: Cancer (prostate), Hyperlipidemia, Hypertension Denies:: Diabetes Mellitus Type 1, Diabetes Mellitus Type 2, Internal Pacemaker, Lung Disease, MRSA, Seizures *Have you ever received a pneumonia vaccine?: Yes *Have you received a flu vaccine this season?: No Other Medical History: Reports: Other Laterality Cases: Right: Arthroscopy Knee Other Surgeries: Yes: Hernia Repair, Other (bladder surgeries x 3). No: Pacemaker Amputation: No Fractures: No - *Social History Smoking Status: Never smoker Alcohol Intake: current Alcohol Intake Frequency:: holidays/special occasions only *Occupational Status:: retired Housing: house Household Members: spouse *Travel in the last 8 weeks: None - Psychiatric History Expresses thoughts of harming self/others: None Suicide Plan Description: No Plan Family Hx:: Hypertension Review of Systems - Review of Systems Review of systems:: pertinent systems reviewed and negative unless documented below See HPI - *Neurologic Denies seizure-like activity Meds Home Medications Medication Instructions Recorded Confirmed Type Allopurinol [Allopurinol 300mg 1 tab PO DAILY 05/10/18 01/19/19 History tablet] Aspirin [Aspirin 81mg EC Tab] 81 mg PO DAILY 05/10/18 01/19/19 History Lisinopril/Hydrochlorothiazide 1 tab PO DAILY 05/10/18 01/19/19 History [Lisinopril-Hctz 10-12.5 mg Tab] Albuterol Sulfate [Albuterol HFA 1 - 2 puffs IH Q4-6H PRN #1 inh 09/15/18 01/19/19 Rx Inhaler] Colchicine 0.6 mg PO TID PRN 01/18/19 01/19/19 History Naproxen Sodium [Naproxen ER 500mg 500 mg PO DAILY 01/18/19 01/19/19 History Tab] Allergies Allergy/AdvReac Type Severity Reaction Status Date / Time No Known Allergies Allergy Verified 01/19/19 00:00 Exam Vital signs and Labs for Last 24 Hours: Temp Pulse Resp BP Pulse Ox 97.9 F 86 16 102/64 L 98 01/19/19 04:00 01/19/19 04:00 01/19/19 04:00 01/19/19 04:00 01/19/19 04:00 Laboratory Results - last 24 hr 01/18/19 21:20: WBC 10.8, RBC 4.83, Hgb 13.5 L, Hct 41.1 L, MCV 85.2, MCH 28.0, MCHC 32.9, RDW 13.9, Plt Count 259, MPV 7.4, Neut % (Auto) 62.6, Lymph % (Auto) 26.7, [place] % (Auto) 7.0, Eos % (Auto) 3.2, Baso % (Auto) 0.4, Neut # (Auto) 6.8, Lymph # (Auto) 2.9, [place] # (Auto) 0.8, Eos # (Auto) 0.3, Baso # (Auto) 0.0 01/18/19 21:20: Sodium 137, Potassium 2.9 L*, Chloride 99, Carbon Dioxide 29, Anion Gap 11.9, BUN 25 H, Creatinine 1.51 H, Estimated Creat Clear 71, Estimated GFR 47 L, Est GFR ( Amer) 57 L, Glucose 103, Calcium 8.9, Troponin I < 0.02 01/18/19 21:20: Total Bilirubin 1.2 H, Direct Bilirubin 0.3 H, Indirect Bilirubin 0.9, AST 27, ALT 37, Alkaline Phosphatase 99, Total Protein 7.7, Albumin 3.2 L 01/18/19 21:20: Lactate 1.6 01/18/19 21:20: B-Natriuretic Peptide < 5 01/18/19 21:20: APTT 22.4 L 01/19/19 03:30: Troponin I 0.27 H 01/19/19 05:40: Troponin I 0.26 H 01/19/19 05:40: WBC 7.6 D, RBC 4.39 L, Hgb 12.5 L, Hct 38.4 L, MCV 87.5, MCH 28.4, MCHC 32.5, RDW 14.0, Plt Count 216, MPV 7.8, Neut % (Auto) 88.2 H, Lymph % (Auto) 9.2 L, [place] % (Auto) 2.0, Eos % (Auto) 0.4, Baso % (Auto) 0.1, Neut # (Auto) 6.7, Lymph # (Auto) 0.7, [place] # (Auto) 0.2, Eos # (Auto) 0.0, Baso # (Auto) 0.0 01/19/19 05:40: Sodium 136, Potassium 3.8 D, Chloride 102, Carbon Dioxide 27, Anion Gap 10.8, BUN 21 H, Creatinine 1.23, Estimated Creat Clear 86, Estimated GFR 59, Est GFR ( Amer) 72 D, Glucose 172 H D, Calcium 8.6, Phosphorus 2.5, Magnesium 2.0 01/19/19 05:40: APTT 40.6 H D I & O for Last 24 hours: Intake & Output 01/16/19 01/17/19 01/18/19 01/19/19 11:59 11:59 11:59 11:59 Intake Total 1424 / 1424 Output Total 750 / 750 Balance 674 / 674 Weight 218 lb Narrative: Patient is awake and alert laying in bed. He shows no signs of respiratory distress. ENT exam is normal. Neck has no lymphadenopathy. Lungs are clear. Heart has a regular rate and rhythm. Abdomen is soft. Extremities are warm to the touch and there is no edema of the lower extremities. There is no calf tenderness. There is no tenderness in the popliteal space of the left leg. Neurologically there is no deficit Assessment and Plan (1) Pulmonary embolism Current visit: Yes Status: Acute Qualifiers: Pulmonary embolism type: other Chronicity: acute Acute cor pulmonale presence: without acute cor pulmonale Qualified Code(s): I26.99 - Other pulmonary embolism without acute cor pulmonale Category: Medical Code(s): I26.99 - Other pulmonary embolism without acute cor pulmonale (2) Deep venous thrombosis of left popliteal vein Current visit: Yes Status: Acute Category: Medical Code(s): I82.432 - Acute embolism and thrombosis of left popliteal vein - Assessment and plan all Dx Assessment and Plan for all problems:: Patient will be started on loading dose of Xarelto 15 mg twice daily with meals beginning today and continue heparin drip. Patient is already showing signs of improvement. Anticipate heparin drip for approximately 48 hours.
--- NOTE | 2019-01-19 08:38 | Pharmacy Consult Notes ---
[facility] Pharmacy Heparin Dosing - Demographic Data Admission date:: 01/18/19 Date: 01/19/19 Time: 21:20 Allergies/Adverse Reactions: Allergies Allergy/AdvReac Type Severity Reaction Status Date / Time No Known Allergies Allergy Verified 01/19/19 00:00 Height: 1.83 m Weight: 98.88 kg - Indication Medication therapy:: Heparin CVA?: No Bleeding problem?: No Kidney disease?: No MA?: No Desired PTT range:: 60-80 seconds Comments:: DVT/PE - Labs Anticoagulation Lab Results:: 01/18/19 01/19/19 21:20 05:40 Hgb 13.5 L 12.5 L Hct 41.1 L 38.4 L Plt Count 259 216 - Monitoring Dose Monitor 1 Date: 01/18/19 Time: 21:20 PTT Result:: 22.4 Infusion Rate:: 28 ML/HR (1400 UNITS/HR) Comment:: 5000 UNIT BOLUS Dose Monitor 2 Date: 01/19/19 Time: 05:40 PTT Result:: 40.6 Infusion Rate:: 32 ML/HR (1600 UNITS/HR) Comment:: REBOLUS WITH 5000 UNITS HEPARIN Dose Monitor 3 Date: 01/19/19 Time: 12:25 PTT Result:: 56.9 Infusion Rate:: 34 ML/HR (1700 UNITS/HR) Dose Monitor 4 Date: 01/19/19 Time: 19:00 PTT Result:: 44.9 Infusion Rate:: 38 ML/HR (1900 UNITS/HR) - Core Measures Is INR > or = 2 at discharge?: No Most Recent Labs:: Laboratory Results - last 24 hr 01/18/19 21:20: WBC 10.8, RBC 4.83, Hgb 13.5 L, Hct 41.1 L, MCV 85.2, MCH 28.0, MCHC 32.9, RDW 13.9, Plt Count 259, MPV 7.4, Neut % (Auto) 62.6, Lymph % (Auto) 26.7, [place] % (Auto) 7.0, Eos % (Auto) 3.2, Baso % (Auto) 0.4, Neut # (Auto) 6.8, Lymph # (Auto) 2.9, [place] # (Auto) 0.8, Eos # (Auto) 0.3, Baso # (Auto) 0.0 01/18/19 21:20: Sodium 137, Potassium 2.9 L*, Chloride 99, Carbon Dioxide 29, Anion Gap 11.9, BUN 25 H, Creatinine 1.51 H, Estimated Creat Clear 71, Estimated GFR 47 L, Est GFR ( Amer) 57 L, Glucose 103, Calcium 8.9, Troponin I < 0.02 01/18/19 21:20: Total Bilirubin 1.2 H, Direct Bilirubin 0.3 H, Indirect Bilirubin 0.9, AST 27, ALT 37, Alkaline Phosphatase 99, Total Protein 7.7, Albumin 3.2 L 01/18/19 21:20: Lactate 1.6 01/18/19 21:20: B-Natriuretic Peptide < 5 01/18/19 21:20: APTT 22.4 L 01/19/19 03:30: Troponin I 0.27 H 01/19/19 05:40: Troponin I 0.26 H 01/19/19 05:40: WBC 7.6 D, RBC 4.39 L, Hgb 12.5 L, Hct 38.4 L, MCV 87.5, MCH 28.4, MCHC 32.5, RDW 14.0, Plt Count 216, MPV 7.8, Neut % (Auto) 88.2 H, Lymph % (Auto) 9.2 L, [place] % (Auto) 2.0, Eos % (Auto) 0.4, Baso % (Auto) 0.1, Neut # (Auto) 6.7, Lymph # (Auto) 0.7, [place] # (Auto) 0.2, Eos # (Auto) 0.0, Baso # (Auto) 0.0 01/19/19 05:40: Sodium 136, Potassium 3.8 D, Chloride 102, Carbon Dioxide 27, Anion Gap 10.8, BUN 21 H, Creatinine 1.23, Estimated Creat Clear 86, Estimated GFR 59, Est GFR ( Amer) 72 D, Glucose 172 H D, Calcium 8.6, Phosphorus 2.5, Magnesium 2.0 01/19/19 05:40: APTT 40.6 H D If INR was < than 2.0 why was therapy stopped?: N/A Were Heparin and Warfarin started on the same day?: No Comments:: PATIENT STARTED ON XARELTO 15 MG BID FOR 21 DAYS, THEN SWITCH TO 20 MG QPM. HEPARIN DRIP STOPPED AT 2100. XARELTO 15 MG GIVEN AT 1700.
--- NOTE | 2019-01-19 08:56 | Non-Invasive Vascular Report ---
"Venous Exam Indications: 415.19 Other pulmonary embolism and infarction. IMPRESSIONS 1. Superficial vein thrombosis involving the right great saphenous vein 2. Deep vein thrombosis involving the left popliteal vein Complete lower extremity venous duplex evaluation. Doppler flow study including spectral analysis, color and merritt scale imaging. Location: Vascular laboratory. Patient status: Inpatient. CRITICAL FINDINGS - Reported to: Dr ROCHA - Read back and verified. - 01/19/19729 - +t dvt lle, + svt rle Tables: Venous flow and imaging: + + + + |Location |Overall |Flow properties | + + + + |Right common femoral |Patent |Normal phasicity; | | | |spontaneous; normal | | | |augmentation; | | | |compressible | + + + + |Right saphenofemoral |Patent |Compressible | |junction | | | + + + + |Right profunda femoral |Patent |Compressible | + + + + |Right femoral |Patent |Normal phasicity; | | | |spontaneous; normal | | | |augmentation; | | | |compressible; no reflux | + + + + |Right greater saphenous |Partially occluded|Diminished phasicity; | | | |diminished spontaneity; | | | |diminished augmentation; | | | |partially compressible; | | | |reflux | + + + + |Right popliteal |Patent |Normal phasicity; | | | |spontaneous; normal | | | |augmentation; | | | |compressible | + + + + |Right posterior tibial |Patent |Compressible | + + + + |Right peroneal |Patent |Compressible | + + + + |Right gastrocnemius |Patent |Compressible | + + + + |Right soleal |Patent |Compressible | + + + + |Left common femoral |Patent |Normal phasicity; | | | |spontaneous; normal | | | |augmentation; | | | |compressible | + + + + |Left saphenofemoral |Patent |Compressible | |junction | | | + + + + |Left profunda femoral |Patent |Compressible | + + + + |Left femoral |Patent |Normal phasicity; | | | |spontaneous; normal | | | |augmentation; | | | |compressible | + + + + |Left greater saphenous |Patent |Normal phasicity; | | | |spontaneous; normal | | | |augmentation; | | | |compressible | + + + + |Left popliteal |Partially occluded|Diminished phasicity; | | | |diminished spontaneity; | | | |normal augmentation; | | | |partially compressible; | | | |reflux | + + + + |Left posterior tibial |Patent |Compressible | + + + + |Left peroneal |Patent |Compressible | + + + + |Left gastrocnemius |Patent |Compressible | + + + + |Left soleal |Patent |Compressible | + + + + (Report amended ) Electronically signed by: Suresh Espinoza [id number]"
[2019-01-19 11:10] LABS: Lymphocytes % 7 % (10-50); Monocytes % 2 % (2-9); Neutrophils % 91 % (42-76); RBC Morphology Normal; Total Cells Counted 100
--- NOTE | 2019-01-20 06:59 | Discharge Summary ---
General - General Admission date:: 01/18/19 Discharge date: 01/20/19 HPI HPI: 64-year-old male with no prior history of thromboembolic disease presented to the emergency department with a little over 48 hours of episodes of right-sided chest pain worse with deep breathing or cough and progressive shortness of breath. He denies hemoptysis, fevers, chills. Work-up in the emergency department revealed bilateral pulmonary embolism. Patient denies family history of thromboembolic disease. Patient was admitted on heparin drip. This morning patient reports less shortness of breath and less chest pain with deep breathing. He denies cough at this time. Doppler assessment of the lower extremities as well as echocardiogram was just completed. Patient has been discovered to have a left popliteal DVT as well as a right greater saphenous thrombus in addition to his pulmonary embolism Hospital Course Hospital Course: Patient was admitted and started on a heparin drip for anticoagulation. The following morning (January 19) patient was started on Xarelto 15 mg twice daily. Heparin drip was discontinued on the evening of the third. Patient symptoms related to his pulmonary embolism gradually improved. By the following morning on January 19 patient had minimal chest pain with deep breathing or cough. By the evening of January 19 symptoms had resolved and patient continued to remain symptom- free the following day. He denied chest pain with inspiration or exertion. He denied shortness of breath with exertion. While initially patient denied family history of blood clots after his did some investigating it turns out patient has had 2 brothers with thromboembolic disease. A factor V Leiden gene mutation test was ordered prior to discharge. Patient was stable on Xarelto. He will continue a loading dose of Xarelto 15 mg twice daily for 21 days. At that point he will be transition to Xarelto 20 mg. Patient will follow-up in my office on 1 weekJanuary 27 at 10 AM Objective Vital signs: Temp Pulse Resp BP Pulse Ox 98.7 F 85 19 117/74 98 01/20/19 04:00 01/20/19 04:00 01/20/19 04:00 01/20/19 04:00 01/20/19 04:00 no acute distress - *Routine Respiratory Exam Present: CTA bilaterally - *Routine Cardiovascular Exam Present: RRR Results Labs on day of discharge: Labs from last 24 hours 01/19/19 01/19/19 01/19/19 19:00 12:25 05:40 Total Counted 100 Neutrophils % (Manual) 91 H Lymphocytes % (Manual) 7 L Monocytes % (Manual) 2 Platelet Estimate Normal RBC Morphology Normal APTT 44.9 H D 56.9 H* D DS: Diagnosis - Discharge Diagnosis (1) Pulmonary embolism Status: Acute (2) Deep venous thrombosis of left popliteal vein Status: Acute (3) Family history of pulmonary embolism Status: Chronic Discharge Plan - Patient Discharge Instructions ACTIVITY: Continue current activity DIET: continue same diet Patient Instructions: Kidney Failure, DI for Pulmonary Embolism, DI for Hypokalemia, Rivaroxaban, Anticoagulation Care - Follow up Plan Follow up with: Dada Dooley MD [Primary Care Provider] - 01/27/19 10:00 am Disposition: Home, Self-Halfway Medications: Home Medications Medication Instructions Recorded Confirmed Type Allopurinol [Allopurinol 300mg 300 mg PO DAILY 05/10/18 01/19/19 History tablet] Aspirin [Aspirin 81mg EC Tab] 81 mg PO DAILY 05/10/18 01/19/19 History Lisinopril/Hydrochlorothiazide 1 tab PO DAILY 05/10/18 01/19/19 History [Lisinopril-Hctz 10-12.5 mg Tab] Albuterol Sulfate [Albuterol HFA 1 - 2 puffs IH Q4-6H PRN #1 inh 09/15/18 01/19/19 Rx Inhaler] Colchicine 1.2 mg PO DIRECTED PRN 01/18/19 01/19/19 History Naproxen Sodium [Naproxen ER 500mg 500 mg PO BID PRN 01/18/19 01/19/19 History Tab] Baclofen [Lioresal 10mg tablet] 10 mg PO TIDP PRN 01/19/19 01/19/19 History Cyclobenzaprine HCl 10 mg PO TIDP PRN 01/19/19 01/19/19 History [Cyclobenzaprine 10mg Tab] Gabapentin [Gabapentin 300mg Cap] 300 mg PO BID 01/19/19 01/19/19 History Rivaroxaban [Xarelto 15mg tablet] 15 mg PO BIDWM #42 tab 01/20/19 Rx Prescriptions/Medication Reconciliation: New Rivaroxaban [Xarelto 15mg tablet] 15 mg PO BIDWM #42 tab Continued Lisinopril/Hydrochlorothiazide [Lisinopril-Hctz 10-12.5 mg Tab] 1 tab PO DAILY Aspirin [Aspirin 81mg EC Tab] 81 mg PO DAILY Colchicine 1.2 mg PO DIRECTED PRN PRN Reason: gout Cyclobenzaprine HCl [Cyclobenzaprine 10mg Tab] 10 mg PO TIDP PRN PRN Reason: MUSCLE RELAXER Gabapentin [Gabapentin 300mg Cap] 300 mg PO BID Baclofen [Lioresal 10mg tablet] 10 mg PO TIDP PRN PRN Reason: MUSCLE RELAXER Allopurinol [Allopurinol 300mg tablet] 300 mg PO DAILY Albuterol Sulfate [Albuterol HFA Inhaler] 1 - 2 puffs IH Q4-6H PRN #1 inh PRN Reason: Shortness Of Breath Or Wheezing Discontinued Naproxen Sodium [Naproxen ER 500mg Tab] 500 mg PO BID PRN PRN Reason: PAIN
--- NOTE | 2019-01-20 12:40 | Cardiology Report ---
PROCEDURE: 2-D M-mode and color Doppler study INDICATIONS FOR THE TEST: Chest pain + COPD Heart Murmur+ Tobacco Smoking Palpitations Fatigue Syncope Edema Hypertension+Diabetes Mellitus Rheumatic Fever SOB+DUQUE+Obesity Hyperlipidemia Family History HD Additional History PROSTATE CA PATIENT INFORMATION HEIGHT:72 WEIGHT:222 GENDER: Male B/P:131/69 2-D/M-MODE INTERPRETATION: 2-D MEASUREMENTS OBSERVED VALUES IN CMS Right Ventricular Dimension (RVDd) 3.4 Interventricular Septum (Thickness)(IVsd) 1.7 Left Ventricular Internal Dimensions(LVIDd) 4.2 Left Ventricular Posterior Wall (Thickness)(LVPWd) 1.4 Aortic Root 3.8 Aortic Cusp Separation 1.9 Left Atrial Dimensions (LAD) 3.6 2D 1. Left atrium is mildly enlarged, left ventricle is normal size, mild concentric left ventricular hypertrophy, visually estimated ejection fraction 55% with no regional wall motion abnormality. 2. The right atrium and right ventricle are mildly enlarged with normal contractility. 3. The aortic valve is thickened and calcified leaflet continue to display good mobility. 4. The mitral and tricuspid valve leaflets are minimally thickened. 5. The pulmonic valve is poorly visualized. 6. No significant pericardial effusion noted. DOPPLER INTERROGATION: Doppler interrogation of the aortic, mitral and tricuspid valvular presence of mild mitral and tricuspid regurgitation, tricuspid regurgitation jet velocity is inadequate for calculation of the right ventricular systolic pressure, grade 1 diastolic dysfunction seen without tissue Doppler evidence of raised left atrial pressure. CONCLUSION: 1. Mildly enlarged left atrium, normal left ventricular size, mild concentric left ventricular hypertrophy, visually estimated ejection fraction 55% with no regional wall motion abnormality, grade 1 diastolic dysfunction seen without tissue Doppler evidence of raised left atrial pressure. 2. Mild mitral and tricuspid regurgitation 3. No significant pericardial effusion noted.
== END 2019-01-20 09:26 | disposition home or self-care (01) | DRG 176 ==
LOC: ER 21:08 → 2ND 22:50
PROVIDERS: ADMIT Internal Medicine Adolescent Medicine; ATTEND Family Medicine
CPT/HCPCS: 36415; 71010; 71045; 71275; 80048; 80076; 81241; 83605; 83735; 83880; 84100; 84484; 85007; 85025; 85730; 87040; 93005; 93306; 93970; 94760; 96365; 96367; 96375; 99285; J2405; Q9967

== ENCOUNTER 2019-02-07 12:40 | Outpatient (CLI) | payer MEDICARE, OTHER, SELFPAY ==
[2019-02-07 12:50] VITALS: BMI 29.0
[2019-02-07 13:12] LABS: Anion Gap 9.6 mEq/L (5-15); Blood Urea Nitrogen 10 mg/dL (7-18); Calcium 8.7 mg/dL (8.5-10.1); Carbon Dioxide 28 mmol/L (21.0-32.0); Chloride 107 mmol/L (98-107); Creatinine Clearance Estimated 95 mL/min (50-200); Creatinine,Serum 1.09 mg/dL (0.70-1.30); Estimated Glomerular Filt Rate 68 ml/min (>60); GFR (African American) 83 ML/MIN (>60); Glucose 75 mg/dL (74-106); Potassium 3.6 mmoL/L (3.5-5.1); Sodium 141 mmol/L (136-145)
[2019-02-07 13:45] VITALS: BP 122/74; PULSE 68; RESP 20; TEMP 36.9; O2SAT 95
[2019-02-07 14:10] VITALS: BP 116/74; PULSE 68; RESP 20; TEMP 36.9; O2SAT 95
== END 2019-02-07 13:55 | disposition home or self-care (01) ==
LOC: INF 12:42
PROVIDERS: PCP Family Medicine; Visit Provider Family Medicine
DX: N39.0 Urinary tract infection, site not specified (principal)
CPT/HCPCS: 36415; 80048; 96372; J1335

== ENCOUNTER 2019-02-08 08:50 | Outpatient (CLI) | payer MEDICARE, OTHER, SELFPAY ==
[2019-02-08 09:13] VITALS: BP 164/86; PULSE 74; RESP 18; TEMP 36.6; O2SAT 100
== END 2019-02-08 09:13 | disposition home or self-care (01) ==
LOC: INF 08:56
PROVIDERS: Visit Provider Family Medicine
DX: N39.0 Urinary tract infection, site not specified (principal)
CPT/HCPCS: 96372; J1335

== ENCOUNTER 2019-02-09 08:50 | Outpatient (CLI) | payer MEDICARE, OTHER, SELFPAY ==
[2019-02-09 09:20] VITALS: BP 152/88; PULSE 83; RESP 18; O2SAT 99
== END 2019-02-09 09:35 | disposition home or self-care (01) ==
LOC: INF 08:54
PROVIDERS: Visit Provider Family Medicine
DX: N39.0 Urinary tract infection, site not specified (principal)
CPT/HCPCS: 96372; J1335

== ENCOUNTER 2019-02-10 09:04 | Outpatient (CLI) | payer MEDICARE, OTHER, SELFPAY ==
[2019-02-10 09:25] VITALS: BP 137/77; PULSE 68; RESP 18; TEMP 36.4; O2SAT 99
== END 2019-02-10 09:27 | disposition home or self-care (01) ==
LOC: INF 09:04
PROVIDERS: Visit Provider Family Medicine
DX: N39.0 Urinary tract infection, site not specified (principal)
CPT/HCPCS: 96372; J1335

== ENCOUNTER 2019-02-11 08:50 | Outpatient (CLI) | payer MEDICARE, OTHER, SELFPAY ==
[2019-02-11 09:15] VITALS: BP 135/86; PULSE 76; RESP 18; O2SAT 99
== END 2019-02-11 09:20 | disposition home or self-care (01) ==
LOC: INF 08:51
PROVIDERS: Visit Provider Family Medicine
DX: N39.0 Urinary tract infection, site not specified (principal)
CPT/HCPCS: 96372; J1335

== ENCOUNTER 2019-02-12 08:39 | Outpatient (CLI) | payer MEDICARE, OTHER, SELFPAY ==
[2019-02-12 08:58] VITALS: BP 155/92; PULSE 65; RESP 17; TEMP 36.6; O2SAT 100
[2019-02-12 09:15] VITALS: BP 148/87; PULSE 65; RESP 18; TEMP 36.7; O2SAT 100
== END 2019-02-12 09:15 | disposition home or self-care (01) ==
LOC: INF 08:41
PROVIDERS: PCP Family Medicine; Visit Provider Family Medicine
DX: N39.0 Urinary tract infection, site not specified (principal)
CPT/HCPCS: 96372; J1335

== ENCOUNTER → 2019-02-13 08:44 | Outpatient (CLI) | payer MEDICARE, OTHER, SELFPAY ==
[2019-02-13 08:53] VITALS: BP 142/89; PULSE 73; RESP 18; TEMP 36.7; O2SAT 96; BMI 29.0
== END ==
PROVIDERS: PCP Family Medicine; Visit Provider Family Medicine
DX: N39.0 Urinary tract infection, site not specified (principal)
CPT/HCPCS: 96372; J1335

== ENCOUNTER → 2019-08-04 08:41 | Outpatient (CLI) | payer MEDICARE, OTHER, SELFPAY ==
--- NOTE | 2019-08-04 08:46 | XR_ITS ---
PROCEDURE: XR HIP LT 2-3V W/PELVIS CLINICAL INDICATION: hip pain COMPARISON: XR hip RT 2-3V w/pelvis from 10/11/2018 FINDINGS: There are moderate osteoarthritic changes of the left hip with sub chondral cystic changes of the acetabulum laterally. No acute fracture or dislocation. No significant change from 10/11/2018. Incidental note is made of mild to moderate osteoarthritic changes of the right hip. Surgical clips are present over the lower pelvis. Penile implant is noted. Neurostimulator device overlies the right sacral region. IMPRESSION: Moderate osteoarthritis of the left hip with subarticular cystic change Dictated by: Suresh Espinoza MD 08/04/2019 17:11 Electronically signed by Suresh Espinoza MD in [place] 08/04/2019 17:11
== END ==
PROVIDERS: PCP Family Medicine; Visit Provider Orthopaedic Surgery
DX: M25.552 Pain in left hip (principal)
CPT/HCPCS: 73502

== ENCOUNTER → 2019-10-04 10:12 | Outpatient (CLI) | payer MEDICARE, OTHER, SELFPAY ==
--- NOTE | 2019-10-04 10:29 | CT_ITS ---
PROCEDURE: CT ANGIO CHEST CLINCIAL INDICATION: ACUTE RT SIDED THORACIC BACK PAIN, HX PE Right-sided chest pain, history of pulmonary embolus COMPARISON: [facility] CT angio chest from 01/22/2019 TECHNIQUE: IV Contrast: 70ML OPTIRAY 350 Axial images obtained with sagittal and coronal reformats. All CT scans at the facility use one or more dose reduction, viz: automated exposure control, ma/kV adjustment per patient size (including targeted exams where dose is matched to indication, i.e. head), or iterative reconstruction technique. FINDINGS: HEART AND MEDIASTINAL STRUCTURES: No evidence of pulmonary embolus aortic aneurysm or aortic dissection. There is minimal calcification of the aortic valve. LUNGS AND PLEURAL SPACES: Scattered areas of scarring and/or atelectatic changes are present in the right upper lobe posteriorly, right lower lobe posteriorly and left lower lobe posteriorly. There is some pleural thickening in the left lower lobe posteriorly with a small peripheral wedge-shaped opacity and could be due to some scarring. Follow-up may confirm stability. Atelectatic changes/consolidation was present in this area on the previous exam.. BONY STRUCTURES: No acute bony abnormalities apparent. UPPER ABDOMEN: Unremarkable. ADDITIONAL FINDINGS: No other significant abnormalities. IMPRESSION: 1. No evidence of pulmonary embolus. 2. Scattered peripheral irregular opacities as described above in right upper lobe right lower lobe and left lower lobe consistent with areas of scarring with peripheral parenchymal opacity in the left lower lobe at 12 mm which could be due to an area of scarring/fibrosis. Recommend six-month follow-up to confirm stability or resolution. Dictated by: Suresh Espinoza MD 10/04/2019 11:45 Electronically signed by Suresh Espinoza MD in [place] 10/04/2019 11:45
[2019-10-04 11:02] LABS: Blood Urea Nitrogen 10 mg/dl (9-20); Estimated Glomerular Filt Rate 75 ml/min (>60); GFR (African American) 91 ML/MIN (>60)
== END ==
PROVIDERS: PCP Family Medicine; Visit Provider Nurse Practitioner
DX: M54.6 Pain in thoracic spine (principal); Z86.711 Personal history of pulmonary embolism
CPT/HCPCS: 36415; 71275; 82565; 84520; Q9967

== ENCOUNTER → 2020-04-14 09:19 | Outpatient (CLI) | payer MEDICARE, OTHER, SELFPAY ==
[2020-04-14 11:36] LABS: Coronavirus 19 IgG Antibody Negative (Negative); Coronavirus 19 IgM Antibody Negative (Negative)
== END ==
PROVIDERS: Visit Provider Urology
DX: N39.41 Urge incontinence (principal); Z01.89 Encounter for other specified special examinations
CPT/HCPCS: 36415; 86328

== ENCOUNTER 2020-04-16 08:05 | Day surgery (SDC) | payer MEDICARE, OTHER, SELFPAY ==
[2020-04-12 10:28] VITALS: BMI 29.5
[2020-04-16 08:19] VITALS: BP 175/99; PULSE 65; RESP 18; TEMP 36.6; O2SAT 100
--- NOTE | 2020-04-16 09:23 | P.PN_ITS ---
[facility] Anesthesia Checklist - Patient Identification Patient Identification: Arm Band, Verbal (Name & ) - Structural Data Admitted From: Home Planned Operative Procedure/s: Interstim battery change Consent for Planned Operative Procedure(s) Verified: Yes Verified Documents: Surgical Consent, History and Physical - NPO Status Verified Time NPO: 23:00 - Chart Verification Results Verified: None - Additional verifications Anesthesia Reactions: No Hx Blood Transfusions: No Blood Transfusion Reaction: No - Airway Assessment C-Spine Mobility Assessed: Yes (MP 2, TMD 3, ) TMJ Mobility Assessed: Yes Dentition: Good Dentition - Neurological Assessment Level of Consciousness: Awake, Alert, Appropriate, Follows Commands Hx Seizures: No Numbness or tingling in extremities: No - Anesthesia Plan Anesthesia Risk discussed: Yes Anesthesia Plan: Verified ASA Class: III Anesthesia Type: [facility] History I have reviewed the patient's past medical history: Yes Medical History: Reports:: Cancer (Prostate), Coronary Artery Disease, Hyperlipidemia, Hypertension Denies:: Diabetes Mellitus Type 1, Diabetes Mellitus Type 2, Internal Pacemaker, Lung Disease, MRSA, Seizures *Have you ever received a pneumonia vaccine?: Yes *Have you received a flu vaccine this season?: No Other Medical History: Reports: Arthritis. Denies: Blood Transfusion Reaction Comment:: BOWEN, obesity Anesthesia experience/problems:: No prior complications Laterality Cases: Right: Arthroscopy Knee Other Surgeries: Yes: Cancer Surgery, Colonoscopy, Hernia Repair, Other. No: Pacemaker Amputation: No Fractures: No - *Social History Last grade of school completed: High school graduate Smoking Status: Never smoker Alcohol Intake: former Alcohol Intake Frequency:: holidays/special occasions only Substance Use Type: denies use *Occupational Status:: retired Housing: house Household Members: spouse *Travel in the last 8 weeks: None Family Hx:: Hypertension, Cancer
[2020-04-16 10:25] VITALS: BP 146/88; PULSE 56; RESP 16; TEMP 36.3; O2SAT 99
[2020-04-16 10:35] VITALS: BP 131/67; PULSE 51; RESP 16; O2SAT 98
--- NOTE | 2020-04-16 10:38 | PC.NURSE ---
Product rep at bedside to discuss postop care of device
[2020-04-16 10:45] VITALS: BP 132/81; PULSE 53; RESP 16; O2SAT 100
[2020-04-16 10:55] VITALS: BP 139/76; PULSE 53; RESP 16; TEMP 36.3; O2SAT 99
--- NOTE | 2020-04-16 11:41 | P.OP_ITS ---
Date of procedure: 04/16/20 Pre-op Diagnosis:: Urge incontinence Post-op Diagnosis:: Same Procedure performed:: InterStim battery change Surgeon:: Tad Avilez MD BUSINESS APPLICATIONS DEVELOPER:: Chau Aldana Anesthesia: MAC Estimated blood loss (mL): 10 Clinical Note:: 65-year-old black male with history of InterStim placement 2014 presents for battery change. Interrogation of the battery does indicate that it has no energy. Operative findings:: Battery change without complication. After placement the perineal tobias response was positive. Operative note:: Patient taken to the operating room after informed consent was obtained. Is placed on the operating table in the prone position and monitored anesthesia c are administered. Is prepped and draped in the standard surgical fashion. IV antibiotics were given. The previous incision for the bladder is noted in the right upper gluteal region. Local anesthetic was placed into the area of the previous scar. Incision was then made in the line of the previous scar and sharp and blunt dissection was performed down to the fascial layer. The fascia was opened and the battery was exposed. The battery was removed from the pocket and brought out for interrogation. There is no evidence of energy from the battery. The battery was then removed from the lead and the leads were tested showing a good tobias response to each lead but no plantar flexion. 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 The lead was then inspected and clean. New battery was inspected and the lead was replaced into the new battery. With the At the end of the line of insertion the lead was tightened down. The battery was then replaced back into the previous pocket however the pocket was irrigated with antibiotic solution prior to replacing it. Fascial layer was closed with a 3-0 running Vicryl and the wound irrigated. The skin was then closed with a 4-0 chromic in a subcuticular fashion. Dermabond was placed over the incision and covered with a sterile dressing. Patient tolerated well and there is normal blood loss. Was transferred to recovery in stable condition. Condition: stable Disposition: same day Specimens:: InterStim battery Complications:: None
== END 2020-04-16 11:11 | disposition home or self-care (01) ==
LOC: OR 08:07
PROVIDERS: PCP Family Medicine; Visit Provider Urology
DX: T83.190A Other mechanical complication of urinary electronic stimulator device, initial encounter (principal); N39.41 Urge incontinence; I25.10 Atherosclerotic heart disease of native coronary artery without angina pectoris; I10 Essential (primary) hypertension; E78.5 Hyperlipidemia, unspecified; Z85.46 Personal history of malignant neoplasm of prostate; M19.90 Unspecified osteoarthritis, unspecified site; N28.9 Disorder of kidney and ureter, unspecified; I26.99 Other pulmonary embolism without acute cor pulmonale; Z79.899 Other long term (current) drug therapy
CPT/HCPCS: 64590; 96374; C1767

== ENCOUNTER → 2020-05-16 16:43 | Outpatient (CLI) | payer MEDICARE, OTHER, SELFPAY ==
[2020-05-16 18:20] LABS: Prostate Specific Ag, Diagnost < 0.064 ng/ml (0.0-4.0)
== END ==
PROVIDERS: Visit Provider Urology
DX: C61 Malignant neoplasm of prostate (principal)
CPT/HCPCS: 36415; 84153

== ENCOUNTER 2022-01-16 20:17 | Emergency (ER) | payer MEDICARE, OTHER, SELFPAY ==
[2022-01-16 20:18] VITALS: BP 120/84; PULSE 98; RESP 19; TEMP 36.8; O2SAT 100; BMI 26.9
--- NOTE | 2022-01-16 20:37 | XR_ITS ---
PROCEDURE INFORMATION: Exam: XR Left Shoulder Exam date and time: 01/16/2022 8:36 PM Age: 67 years old Clinical indication: Pain; Shoulder; Left; Additional info: Shoulder pain TECHNIQUE: Imaging protocol: Radiologic exam of the Left shoulder. Views: 2 or more views. COMPARISON: CR Chest 01/18/2019 9:40 PM FINDINGS: Bones/joints: No evidence of acute fracture or dislocation. No erosive disease. Mild acromioclavicular and glenohumeral osteoarthritis. Visualized left ribs appear normal. Soft tissues: Normal soft tissue planes. IMPRESSION: Mild degenerative change without evidence of acute fracture or destructive lesion.
[2022-01-16 20:44] LABS: Basophils # 0.1 K/mm3 (0-0.2); Basophils % 0.5 % (0.1-2.0); Eosinophils # 0.2 K/mm3 (0.0-0.4); Hematocrit 39.7 % (42.0-52.0); Hemoglobin 13.6 g/dL (14.1-18.0); Lymphocytes # 2.5 K/mm3 (0.7-4.5); Lymphocytes % 25.5 % (10-50); Mean Corpuscular HGB Conc 34.3 g/dL (31.8-35.4); Mean Corpuscular Hemoglobin 26.1 pg (27.0-31.2); Mean Corpuscular Volume 76.1 fl (80-94); Mean Platelet Volume 6.9 fl (7.4-10.4); Monocytes # 0.6 K/mm3 (0.1-1.0); Monocytes % 6.6 % (1.7-9.3); Neutrophils # 6.3 K/mm3 (1.8-7.8); Neutrophils % 65.4 % (37.0-80.0); Platelet Count 369 K/mm3 (142-424); Red Blood Count 5.21 M/mm3 (4.60-6.20); Red Cell Distribution Width 14.8 % (11.5-17.5); White Blood Count 9.7 K/mm3 (4.8-10.8)
[2022-01-16 21:00] VITALS: BP 109/82; PULSE 95; O2SAT 97
[2022-01-16 21:04] LABS: Alanine Aminotransferase 24 U/L (12-78); Albumin Level 3.9 g/dl (3.5-5.0); Albumin/Globulin Ratio 0.9 (1.1-1.8); Alkaline Phosphatase 148 U/L (38-126); Aspartate Amino Transferase 27 U/L (17-59); Bilirubin,Total 0.7 mg/dl (0.2-1.3); Blood Urea Nitrogen 8 mg/dl (9-20); Calcium 9.2 mg/dl (8.4-10.2); Carbon Dioxide 32 mmol/L (22.0-30.0); Creatinine Clearance Estimated 93 mL/min (50-200); Estimated Glomerular Filt Rate 84 ml/min (>60); GFR (African American) 102 ML/MIN (>60); Globulin 4.2 g/dL (1.3-3.2); Glucose 90 mg/dl (74-100); Potassium 3.3 mmoL/L (3.5-5.1); Sodium 140 mmol/L (136-145); Total Protein,Serum 8.1 g/dl (6.3-8.2); Uric Acid 3.7 mg/dl (3.5-8.5)
[2022-01-16 21:09] LABS: C-Reactive Protein 118.4 mg/L (0-4)
[2022-01-16 21:14] LABS: Erythrocyte Sedimentation Rate 52 mm/hr (0-20)
[2022-01-16 21:23] LABS: Procalcitonin 0.127 ng/mL (0.0-2.0)
[2022-01-16 21:25] LABS: Anion Gap 9.3 mEq/L (5-15); Chloride 102 mmol/L (98-107)
--- NOTE | 2022-01-16 21:53 | HMH.EDGENADL ---
ED Disposition Clinical Impression: Left shoulder tendonitis Shoulder pain, acute Qualifiers: Laterality: left Qualified Code(s): M25.512 - Pain in left shoulder Disposition: Home, Self-Care Condition on Discharge: Good Instructions: DI for Shoulder Pain Additional Instructions: use meds and call pcp for follow up Prescriptions: predniSONE [Prednisone 20mg Tab] 20 mg PO BID #10 tab Transmission Status: Pending to [facility] Referrals: Connie Parker APRN [Primary Care Provider] - Kwame Ibanez JR, MD [Physician] - Joseluis Almazan MD [Staff Physician] - - Critical Care Critical Care Time: No Attestation: On 01/16/22, the high probability of a clinically significant, sudden or life threatening deterioration of the following system(s) required my full and direct attention, intervention and personal management. The time I documented below is in addition to time spent performing reported procedures but includes the following listed in this critical care notation. Medical Decision Making - Medical Records Medical records reviewed: Yes: I reviewed the patient's medical records. - Isidro Inquiry Pt receiving controlled substance: No Vital Signs: 01/16/22 20:18 01/16/22 21:00 Temperature 98.3 F Temperature Source Oral Pulse Rate 95 H Pulse Rate [Right] 98 H Respiratory Rate 19 Blood Pressure 109/82 L Blood Pressure [Right Arm] 120/84 Blood Pressure Mean [Right Arm] 96 Blood Pressure Source [Right Arm] Automatic Cuff 02 Sat by Pulse Oximetry 100 97 Oxygen Delivery Method Room Air Room Air - Lab Data Lab results reviewed: Yes: I reviewed the patient's lab results. Lab Results 01/16/22 20:24: WBC 9.7, RBC 5.21, Hgb 13.6 L, Hct 39.7 L, MCV 76.1 L, MCH 26.1 L, MCHC 34.3, RDW 14.8, Plt Count 369, MPV 6.9 L, Neut % (Auto) 65.4, Lymph % (Auto) 25.5, [place] % (Auto) 6.6, Eos % (Auto) 2.0, Baso % (Auto) 0.5, Neut # (Auto) 6.3, Lymph # (Auto) 2.5, [place] # (Auto) 0.6, Eos # (Auto) 0.2, Baso # (Auto) 0.1, ESR 52 H 01/16/22 20:24: Sodium 140, Potassium 3.3 L, Chloride 102, Carbon Dioxide 32 H, Anion Gap 9.3, BUN 8 L, Creatinine 0.90, Estimated Creat Clear 93, Estimated GFR 84, Est GFR ( Amer) 102, Glucose 90, Calcium 9.2, Total Bilirubin 0.7, AST 27, ALT 24, Alkaline Phosphatase 148 H, C-Reactive Protein 118.4 H, Total Protein 8.1, Albumin 3.9, Globulin 4.2 H, Albumin/Globulin Ratio 0.9 L, Procalcitonin 0.127 01/16/22 20:24: Uric Acid 3.7 Result diagrams: 01/16/22 20:24 01/16/22 20:24 - Radiology Data #1 Image(s): Shoulder Image Reviewed: Yes I have reviewed radiologist's interpretation Preliminary Findings: No Fracture Seen Medical Decision Narrative: has clinical bursitis/tendonitis with stable xrays - will have pt call pcp for follow up General Adult HPI - General Chief complaint: PAIN Stated complaint: PAIN lEFT SHOULDER Time Seen by Provider: 01/16/22 21:53 Mode of Arrival: Family Vehicle Source of Information: Patient, Medical Record Limitations: No Limitations Description of Symptoms (Recalled from ER Triage Doc. by RN): Pt c/o L shuolder pain that worsens with movement. STates he has a hx of arthritis and gout. Denies any chest pain, SOA, or radiating pain to neck, jaw, or down left arm. Denies any headache, dizziness, or lethargy. He uses a cane with his left arm. Reports it began to hurt last night (01/15) andhe was not able to sleep all night from the pain. - History of Present Illness HPI narrative: lt shoulder pain over the last few days with dec rom - no def trauma but has lifting box on thursday - has hx of gout and djd- Onset (ago): day(s) Location: upper extremity Severity: moderate Quality: aching Consistency: intermittent Exacerbating factors: movement Associated symptoms: denies other symptoms Treatments prior to arrival: none - Related Data Home Medications Medication Instructions Recorded Confirmed allopurinoL [Allopurinol 3
[2022-01-16 22:04] VITALS: BP 129/84; PULSE 78; RESP 18; TEMP 36.8; O2SAT 100
== END 2022-01-16 22:12 | disposition home or self-care (01) ==
PROVIDERS: Emergency Provider Emergency Medicine; PCP Nurse Practitioner Family
DX: M77.8 Other enthesopathies, not elsewhere classified (principal); Z79.899 Other long term (current) drug therapy; M19.90 Unspecified osteoarthritis, unspecified site; M10.9 Gout, unspecified; I25.10 Atherosclerotic heart disease of native coronary artery without angina pectoris; E78.5 Hyperlipidemia, unspecified; I10 Essential (primary) hypertension; N28.9 Disorder of kidney and ureter, unspecified; Z85.46 Personal history of malignant neoplasm of prostate
CPT/HCPCS: 73030; 80053; 84145; 84550; 85025; 85651; 86140; 99283

== ENCOUNTER → 2023-02-16 12:24 | Outpatient (CLI) | payer MEDICARE, OTHER, SELFPAY ==
--- NOTE | 2023-02-16 12:32 | CA_ITS ---
FINAL REPORT CLINICAL HISTORY: HX DVT'S, PT ON XARELTO,VARCOSITIES RLE,EDEMA COMPARISON: None FINDINGS: Color Doppler, duplex Doppler and compression sonography of the bilateral lower extremities was performed. There is no evidence of deep venous thrombosis from the level of the groin to the calf. The deep veins are patent and compressible. IMPRESSION: No evidence of deep venous thrombosis bilateral lower extremities. Reviewed, Interpreted and Dictated by Chacorta Staton III, MD Transcribed by María Bowser Authenticated and [facility]
== END ==
PROVIDERS: PCP Nurse Practitioner Family; Visit Provider Nurse Practitioner Family
DX: R60.1 Generalized edema (principal); I82.503 Chronic embolism and thrombosis of unspecified deep veins of lower extremity, bilateral
CPT/HCPCS: 93970

== ENCOUNTER 2023-09-30 17:40 | Emergency (ER) | payer MEDICARE, OTHER, SELFPAY ==
[2023-09-30 18:45] VITALS: BP 170/89; PULSE 89; RESP 18; TEMP 37.3; O2SAT 100; BMI 30.6
--- NOTE | 2023-09-30 18:49 | ED_ITS ---
Discharge Plan Disposition Patient Disposition: Home, Self-Care Condition: Good Prescriptions Prescriptions: New benzonatate 100 mg capsule 100 mg PO TIDP PRN (Reason: Cough) Qty: 30 0RF methylprednisolone 4 mg Tablets,Dose Pack 4 mg PO DIRECTED 6 Days Qty: 21 0RF Rx Instructions: Take 1 pack as directed for 6 days amoxicillin-pot clavulanate 875-125 mg Tablet 1 tab PO Q12H Qty: 20 0RF guaifenesin [Mucinex] 600 mg tablet extended release 12hr 600 - 1,200 mg PO BIDP PRN (Reason: Congestion) Qty: 30 0RF No Action allopurinol 300 MG tablet 300 mg PO DAILY rivaroxaban 20 MG tablet 5 mg PO DAILY amlodipine 5 MG tablet 5 mg PO DAILY Referrals Follow up/Referrals: Jorge Antonio MD [Primary Care Provider] - See instructions Activity Restrictions/Add. Instructions Additional Instructions/Restrictions: Drink plenty of fluids. Take tylenol or ibuprofen for pain or fever. Take the medications as directed. Follow up with your regular doctor. GO TO THE ER FOR ANY WORSENING SYMPTOMS Clinical Impressions Clinical Impression: Bronchitis Instructions Patient Instructions: DI for Acute Bronchitis, Dexamethasone Injection Discharge ED Provider: William Beltran [facility] General Stated complaint: exp-bronchitis- cough, SOA Time Seen by Provider: 09/30/23 18:49 History of Present Illness Provider Complaint: He states that for the past 3 days he has had a worsening productive cough and chest congestion. He is now having pain in his right lower back when he coughs and deep breaths. He denies any fever/chills/body aches. He states that his has had similar symptoms. He denies any history of copd or asthma. He was never a smoker. Related Data Home Medications Medication Instructions Recorded Confirmed allopurinol 300 mg tablet 300 mg PO DAILY gout 05/10/18 09/30/23 rivaroxaban 20 mg tablet 5 mg PO DAILY DVT 02/11/19 09/30/23 amlodipine 5 mg tablet 5 mg PO DAILY blood pressure 04/16/20 09/30/23 Previous Rx's Medication Instructions Recorded amoxicillin 875 mg-potassium 1 tab PO Q12H #20 tabs 09/30/23 clavulanate 125 mg tablet benzonatate 100 mg capsule 100 mg PO TIDP PRN Cough #30 caps 09/30/23 guaifenesin 600 mg tablet, 600 - 1,200 mg (1 - 2 x 600 mg) PO 09/30/23 extended release 12 hr (Mucinex) BIDP PRN Congestion #30 tabs methylprednisolone 4 mg tablets in 4 mg PO DIRECTED 6 days #21 tabs 09/30/23 a dose pack Allergies Allergy/AdvReac Type Severity Reaction Status Date / Time No Known Allergies Allergy Verified 09/30/23 19:05 [facility] Disclaimer: The information contained in this section may have been updated after the patient was seen, as this information can be updated by other users. Social History Smoking Status: Never smoker alcohol intake: former substance use type: denies use current occupational status: retired Travel in the last 8 weeks: None household members: spouse housing: house current occupational exposures/hazards: No caffeine: No ROS Obtained: Yes All systems reviewed & no additional complaints except as documented Constitutional Constitutional: Reports poor appetite Eyes Eyes: Reports system reviewed and no additional complaints, except as documented ENT Ears, Nose, Mouth, and Throat: Reports as per HPI Cardiovascular Cardiovascular: Reports system reviewed and no additional complaints, except as documented and Denies chest pain Respiratory Respiratory: Denies shortness of breath, Reports chest congestion, Reports cough, Denies stridor and Denies wheezing Gastrointestinal Gastrointestingal: Reports system reviewed and no additional complaints, except as documented; Denies abdominal pain, diarrhea or vomiting Musculoskeletal Musculoskeletal: Reports system reviewed and no additional complaints, except as documented and Denies arthralgias Integumentary/Breasts Skin/Breast: Reports system reviewed and no additional complaints, except as documented and Denies rash Neurologic Neurologic: Denies paresthesias Allergic/Immunologic Allergic/Immunologic: Denies wheezing Physical Exam General General appearance: alert and in no apparent distress Eye Eye exam: Present normal appearance, PERRL and EOMI ENT ENT exam: Present mucous membranes moist and normal external ear exam Expanded ENT Exam External ear exam: Present normal external inspection TM/Canal exam: Bilateral TM: erythema and bulging Nose exam: Absent sinus tenderness Nasal speculum exam: Bilateral: normal Mouth exam: Present normal external inspection; Absent drooling Teeth exam: Present normal inspection Throat exam: Present tonsillar erythema and tonsillomegaly Neck Neck exam: Present normal inspection, full ROM and trachea midline; Absent tenderness, lymphadenopathy or thyromegaly Chest Chest inspection: Present normal inspection and symmetric chest wall rise; Absent tenderness or rash Respiratory Respiratory exam: Present normal lung sounds bilaterally; Absent respiratory distress, wheezes, stridor or accessory muscle use Cardiovascular Cardiovascular exam: Present regular rate, normal rhythm and normal heart sounds Abdominal Exam Abdominal exam: Present soft; Absent distention, tenderness, guarding, rebound or rigidity Extremities Exam Extremities exam: Present normal inspection, full ROM and normal capillary refill; Absent tenderness or calf tenderness Back Exam Back exam: Present normal inspection and full ROM; Absent tenderness Neurological Exam Neurological exam: Present alert and oriented X3 Psychiatric Psychiatric exam: Present normal affect and normal mood Skin Skin exam: Present warm, dry, intact and normal color Lymphatic Lymphatic Findings: no adenopathy Medical Decision Making Medical Records Medical records reviewed: No I reviewed the patient's medical records. Isidro Inquiry Pt receiving controlled substance: No
[2023-09-30] MEDS: DEXAMETHASONE 4MG/ML 1ML VIAL 8 MG IM (19:25)
[2023-09-30 19:54] VITALS: BP 158/85; PULSE 69; RESP 18; TEMP 36.8; O2SAT 96
== END 2023-09-30 19:54 | disposition home or self-care (01) ==
PROVIDERS: Emergency Provider Nurse Practitioner Family; PCP Family Medicine
DX: J40 Bronchitis, not specified as acute or chronic (principal); R06.02 Shortness of breath; R05.9 Cough, unspecified; M54.50 Low back pain, unspecified
CPT/HCPCS: 96372; 99204; 99212; G0463